=== PATIENT | male | born 1980 | race Caucasian/White ===

== ENCOUNTER 2021-04-24 17:40 | Emergency (ER) | payer SELFPAY | END 2021-04-25 00:28 | disposition home or self-care (01) | LOC: ERS 17:40 | DX: M25.551 Pain in right hip (principal); R51.9 Headache, unspecified; I69.351 Hemiplegia and hemiparesis following cerebral infarction affecting right dominant side; W19.XXXA Unspecified fall, initial encounter | CPT/HCPCS: 70450 ==

== ENCOUNTER 2021-12-30 05:54 | Emergency (ER) | payer MEDICAID | END 2021-12-30 09:06 | disposition home or self-care (01) | LOC: ERS 05:54 | DX: S02.841A Fracture of lateral orbital wall, right side, initial encounter for closed fracture (principal); S02.31XA Fracture of orbital floor, right side, initial encounter for closed fracture; S02.40CA Maxillary fracture, right side, initial encounter for closed fracture; S02.40EA Zygomatic fracture, right side, initial encounter for closed fracture; Z86.73 Personal history of transient ischemic attack (TIA), and cerebral infarction without residual deficits; Z79.899 Other long term (current) drug therapy; Z79.82 Long term (current) use of aspirin; Z79.01 Long term (current) use of anticoagulants; W20.8XXA Other cause of strike by thrown, projected or falling object, initial encounter | CPT/HCPCS: 70450; 70486 ==

== ENCOUNTER 2022-06-09 22:05 | Emergency (ER) | payer MEDICAID, OTHER ==
[2022-06-09] MEDS ORDERED: Ondansetron PF 4 MG/2 ML Vial ONE ×2 (22:45→23:53)
[2022-06-09 23:20] LABS: #Eosinphils 0.1 thou/uL (0.0-0.7); #Lymphocytes 0.9 thou/uL (1.20-3.40); #Monocytes 0.3 thou/uL (0.11-0.59); #Neutrophils 3.2 thou/uL (1.40-6.50); %Basophils 0.8 % (0.0-1.0); %Eosinophils 1.3 % (0.0-10.0); %Lymphocytes 19.5 % (21.0-51.0); %Monocytes 7.6 % (0.0-10.0); %Neutrophils 70.8 % (42.0-75.0); Hemoglobin 12.5 g/dL (14.0-18.0); Mean Corpuscular HGB CONC 34.2 g/dL (32.0-36.0); Mean Corpuscular Hemoglobin 31.8 pg (27.0-31.0); Mean Corpuscular Volume 93.1 fl (78.0-98.0); Mean Platelet Volume 7.1 fL (7.4-10.4); Platelet Count 206 10x3/uL (130-400); Red Blood Cell (RBC) Count 3.94 mill/uL (4.70-6.10); White Blood Cell (WBC) Count 4.6 10x3/uL (4.8-10.8)
[2022-06-10 00:04] LABS: SARS-CoV-2 NAA Rapid Test Not Detected (NotDetected)
[2022-06-10 00:58] LABS: ALT (SGPT) 13 U/L (8-55); AST (SGOT) 9 U/L (5-34); Albumin 4.8 g/dL (3.5-5.0); Alkaline Phosphatase 84 U/L (40-110); Anion Gap 15 mmol/L (10-20); BUN (Urea Nitrogen) 14 mg/dL (8.9-20.6); Bilirubin, Total 0.7 mg/dL (0.2-1.2); Calc. Creatinine Clearance 0 mL/min (70-130); Calcium 9.6 mg/dL (7.8-10.44); Carbon Dioxide 28 mmol/L (22-29); Chloride 105 mmol/L (98-107); Estimated GFR 88; Globulin 2.6 g/dL (2.4-3.5); Glucose 109 mg/dL (70-105); Potassium 3.6 mmol/L (3.5-5.1); Protein, Total 7.4 g/dL (6.0-8.3); Sodium 144 mmol/L (136-145)
[2022-06-10] MEDS ORDERED: Iopamidol-370 76% 500 ML 1 ML ONE (08:49)
== END 2022-06-10 02:58 ==
LOC: ERS 22:05
DX: R11.2 Nausea with vomiting, unspecified (principal); I10 Essential (primary) hypertension; K21.9 Gastro-esophageal reflux disease without esophagitis
CPT/HCPCS: 74177; 80053; 83690; 85025; 96374; 96376; J2405; Q9967

== ENCOUNTER 2022-08-04 12:13 | Inpatient (IN) | payer OTHER ==
[2022-08-04 12:57] LABS: Bacteria/HPF None Seen HPF (None Seen); Bilirubin 1+ (Negative); Blood, Urine Negative (Negative); Clarity Clear (Clear); Glucose, Urine (Dipstick) Normal (Negative); Ketone, Urine 10 mg/dL (Negative); Leukocyte Negative Leu/uL (Negative); Nitrite Negative (Negative); Protein, Urine (Dipstick) 100 mg/dL (Neg-Trace); RBC/HPF 0-3 HPF (0-3); Specific Gravity, Urine 1.041 (1.002-1.036); Squamous Epithelial None Seen HPF (0-3); Urobilinogen Greater than 12 mg/dL (Less than 2); WBC/HPF 0-3 HPF (0-3); pH, Urine 6.5 (5.0-9.0)
[2022-08-04 13:26] LABS: #Lymphocytes 1.3 thou/uL (1.20-3.40); #Monocytes 0.5 thou/uL (0.11-0.59); %Eosinophils 0.7 % (0.0-10.0); %Lymphocytes 22.4 % (21.0-51.0); %Neutrophils 68.8 % (42.0-75.0); Hemoglobin 14.1 g/dL (14.0-18.0); Mean Corpuscular Hemoglobin 30.7 pg (27.0-31.0); Mean Corpuscular Volume 90.3 fl (78.0-98.0); Mean Platelet Volume 7.6 fL (7.4-10.4); Platelet Count 215 10x3/uL (130-400); Red Blood Cell (RBC) Count 4.61 mill/uL (4.70-6.10); White Blood Cell (WBC) Count 5.8 10x3/uL (4.8-10.8)
[2022-08-04 13:48] LABS: ALT (SGPT) 14 U/L (8-55); AST (SGOT) 14 U/L (5-34); Albumin 4.8 g/dL (3.5-5.0); Alkaline Phosphatase 89 U/L (40-110); Anion Gap 18 mmol/L (10-20); BUN (Urea Nitrogen) 19 mg/dL (8.9-20.6); Calc. Creatinine Clearance 0 mL/min (70-130); Carbon Dioxide 24 mmol/L (22-29); Chloride 106 mmol/L (98-107); Estimated GFR 88; Glucose 100 mg/dL (70-105); Lipase 28 U/L (8-78); Potassium 3.2 mmol/L (3.5-5.1); Protein, Total 7.8 g/dL (6.0-8.3); Sodium 145 mmol/L (136-145)
[2022-08-04] MEDS ORDERED: LORazepam 2 MG/ML SYR.(CARPUJECT) ONE (13:49)
[2022-08-04] MEDS ORDERED: Piperacillin/Tazobactam 3.375 GM VIAL ONE (15:14)
[2022-08-04 15:41] LABS: Phosphorus 3.5 mg/dL (2.3-4.7)
[2022-08-04 16:29] VITALS: BMI 27.8
[2022-08-04] MEDS ORDERED: Acetaminophen 650 MG Suppository PR PRN (16:52)
[2022-08-04] MEDS ORDERED: Ondansetron ODT 4 MG TAB PO PRN (16:52)
[2022-08-04] MEDS ORDERED: Ondansetron PF 4 MG/2 ML Vial IVP PRN (16:52)
[2022-08-04] MEDS: D5 1/2 NS w/20 mEq KCL 1,000 ML IV SCH ×2 (17:30→23:20)
[2022-08-04] MEDS: levETIRAcetam 500 MG/5 ML VIAL SLOW IVP SCH (17:34)
[2022-08-04] MEDS: Famotidine/PF 20 mg/2ml Vial SLOW IVP SCH (20:24)
[2022-08-04] MEDS ORDERED: levETIRAcetam 500 MG/5 ML VIAL SLOW IVP SCH (21:00)
[2022-08-04] MEDS: Lacosamide 200 MG in Sodium Chloride 0.9% 50 ML IVPB SCH (22:32)
[2022-08-05] MEDS: levETIRAcetam 500 MG/5 ML VIAL SLOW IVP SCH ×2 (05:37→17:57)
[2022-08-05 07:24] LABS: #Eosinphils 0.1 thou/uL (0.0-0.7); #Lymphocytes 0.9 thou/uL (1.20-3.40); #Monocytes 0.3 thou/uL (0.11-0.59); #Neutrophils 4.4 thou/uL (1.40-6.50); %Basophils 0.4 % (0.0-1.0); %Eosinophils 2.3 % (0.0-10.0); %Monocytes 5.4 % (0.0-10.0); Hemoglobin 11.7 g/dL (14.0-18.0); Mean Corpuscular HGB CONC 33.3 g/dL (32.0-36.0); Mean Corpuscular Hemoglobin 30.7 pg (27.0-31.0); Mean Corpuscular Volume 92.2 fl (78.0-98.0); Mean Platelet Volume 7.7 fL (7.4-10.4); Platelet Count 149 10x3/uL (130-400); RBC Distribution Width 11.9 % (11.5-14.5); Red Blood Cell (RBC) Count 3.81 mill/uL (4.70-6.10); White Blood Cell (WBC) Count 5.7 10x3/uL (4.8-10.8)
[2022-08-05] MEDS: D5 1/2 NS w/20 mEq KCL 1,000 ML IV SCH (07:42)
[2022-08-05 07:52] LABS: ALT (SGPT) 7 U/L (8-55); AST (SGOT) 9 U/L (5-34); Albumin 3.7 g/dL (3.5-5.0); Alkaline Phosphatase 69 U/L (40-110); Anion Gap 11 mmol/L (10-20); BUN (Urea Nitrogen) 14 mg/dL (8.9-20.6); Bilirubin, Total 0.6 mg/dL (0.2-1.2); Calc. Creatinine Clearance 153 mL/min (70-130); Calcium 8.2 mg/dL (7.8-10.44); Carbon Dioxide 21 mmol/L (22-29); Chloride 114 mmol/L (98-107); Estimated GFR 112; Globulin 2.1 g/dL (2.4-3.5); Glucose 105 mg/dL (70-105); Magnesium 1.8 mg/dL (1.6-2.6); Potassium 2.9 mmol/L (3.5-5.1); Protein, Total 5.8 g/dL (6.0-8.3); Sodium 143 mmol/L (136-145)
[2022-08-05] MEDS ORDERED: Magnesium 2 GM/50 ML(in water) 2 GM in Premix Bag 1 BAG IVPB SCH (08:30)
[2022-08-05] MEDS: D5 1/2 NS w/40 mEq KCL 1,000 ML IV SCH ×3 (09:16→23:46)
[2022-08-05] MEDS: Lacosamide 200 MG in Sodium Chloride 0.9% 50 ML IVPB SCH ×2 (09:19→21:11)
[2022-08-05] MEDS: Famotidine/PF 20 mg/2ml Vial SLOW IVP SCH (09:19)
[2022-08-05] MEDS ORDERED: Pantoprazole 40 MG VIAL IVP SCH (13:15)
[2022-08-05 17:19] LABS: Anion Gap 12 mmol/L (10-20); BUN (Urea Nitrogen) 12 mg/dL (8.9-20.6); Calc. Creatinine Clearance 159 mL/min (70-130); Carbon Dioxide 18 mmol/L (22-29); Chloride 115 mmol/L (98-107); Estimated GFR 113; Glucose 106 mg/dL (70-105); Potassium 3.3 mmol/L (3.5-5.1); Sodium 142 mmol/L (136-145)
[2022-08-05] MEDS: Pantoprazole 40 MG VIAL IVP SCH (20:07)
[2022-08-06] MEDS: levETIRAcetam 500 MG/5 ML VIAL SLOW IVP SCH ×2 (05:09→17:39)
[2022-08-06] MEDS: Fosphenytoin Sodium 150 MG in Sodium Chloride 0.9% 50 ML IVPB SCH ×2 (05:54→17:43)
[2022-08-06 06:20] LABS: #Eosinphils 0.1 thou/uL (0.0-0.7); #Monocytes 0.3 thou/uL (0.11-0.59); %Basophils 0.1 % (0.0-1.0); %Eosinophils 3.1 % (0.0-10.0); %Lymphocytes 22.1 % (21.0-51.0); %Monocytes 6.8 % (0.0-10.0); %Neutrophils 67.9 % (42.0-75.0); Mean Corpuscular HGB CONC 33.6 g/dL (32.0-36.0); Mean Corpuscular Hemoglobin 30.8 pg (27.0-31.0); Mean Corpuscular Volume 91.8 fl (78.0-98.0); Mean Platelet Volume 7.8 fL (7.4-10.4); Platelet Count 129 10x3/uL (130-400); RBC Distribution Width 11.7 % (11.5-14.5); Red Blood Cell (RBC) Count 3.56 mill/uL (4.70-6.10); White Blood Cell (WBC) Count 4.3 10x3/uL (4.8-10.8)
[2022-08-06 06:54] LABS: Anion Gap 11 mmol/L (10-20); BUN (Urea Nitrogen) 8 mg/dL (8.9-20.6); Calc. Creatinine Clearance 171 mL/min (70-130); Calcium 8.2 mg/dL (7.8-10.44); Carbon Dioxide 19 mmol/L (22-29); Chloride 113 mmol/L (98-107); Estimated GFR 115; Glucose 110 mg/dL (70-105); Magnesium 1.9 mg/dL (1.6-2.6); Phosphorus 2.1 mg/dL (2.3-4.7); Potassium 3.5 mmol/L (3.5-5.1); Sodium 139 mmol/L (136-145)
[2022-08-06] MEDS: D5 1/2 NS w/40 mEq KCL 1,000 ML IV SCH ×3 (08:17→19:55)
[2022-08-06] MEDS: Pantoprazole 40 MG VIAL IVP SCH ×2 (08:18→19:59)
[2022-08-06] MEDS: Lacosamide 200 MG in Sodium Chloride 0.9% 50 ML IVPB SCH ×2 (09:23→20:46)
[2022-08-06] MEDS ORDERED: Potassium Phosphate 30 MMOL in Sodium Chloride 0.9% 500 ML IVPB SCH (10:00)
[2022-08-07] MEDS: Fosphenytoin Sodium 150 MG in Sodium Chloride 0.9% 50 ML IVPB SCH ×2 (05:09→16:10)
[2022-08-07] MEDS: levETIRAcetam 500 MG/5 ML VIAL SLOW IVP SCH ×2 (05:09→17:15)
[2022-08-07 07:08] LABS: #Eosinphils 0.2 thou/uL (0.0-0.7); #Lymphocytes 1.2 thou/uL (1.20-3.40); #Monocytes 0.4 thou/uL (0.11-0.59); #Neutrophils 3.1 thou/uL (1.40-6.50); %Basophils 0.5 % (0.0-1.0); %Eosinophils 3.5 % (0.0-10.0); %Lymphocytes 25.1 % (21.0-51.0); %Monocytes 7.1 % (0.0-10.0); %Neutrophils 63.9 % (42.0-75.0); Hemoglobin 12.9 g/dL (14.0-18.0); Mean Corpuscular HGB CONC 33.7 g/dL (32.0-36.0); Mean Corpuscular Hemoglobin 30.6 pg (27.0-31.0); Mean Corpuscular Volume 90.8 fl (78.0-98.0); Platelet Count 148 10x3/uL (130-400); RBC Distribution Width 11.9 % (11.5-14.5); Red Blood Cell (RBC) Count 4.21 mill/uL (4.70-6.10); White Blood Cell (WBC) Count 4.9 10x3/uL (4.8-10.8)
[2022-08-07 07:20] LABS: Anion Gap 16 mmol/L (10-20); BUN (Urea Nitrogen) 4 mg/dL (8.9-20.6); Calc. Creatinine Clearance 160 mL/min (70-130); Calcium 9.2 mg/dL (7.8-10.44); Carbon Dioxide 17 mmol/L (22-29); Chloride 110 mmol/L (98-107); Estimated GFR 113; Glucose 90 mg/dL (70-105); Magnesium 1.8 mg/dL (1.6-2.6); Phosphorus 2.7 mg/dL (2.3-4.7); Potassium 3.8 mmol/L (3.5-5.1); Sodium 139 mmol/L (136-145)
[2022-08-07] MEDS: Pantoprazole 40 MG VIAL IVP SCH (08:04)
[2022-08-07] MEDS ORDERED: Electrolyte Replacement Protocol 1 EACH FS SCH (08:15)
[2022-08-07] MEDS ORDERED: Magnesium 2 GM/50 ML(in water) 2 GM in Premix Bag 1 BAG IVPB SCH (09:00)
[2022-08-07] MEDS: D5 1/2 NS w/40 mEq KCL 1,000 ML IV SCH ×3 (10:06→21:35)
[2022-08-07] MEDS: Lacosamide 200 MG in Sodium Chloride 0.9% 50 ML IVPB SCH (10:33)
[2022-08-07] MEDS ORDERED: FLU VACC QS2022-23(6MOS UP)/PF 60 MCG/0.5 ML SYRINGE IM ONE (16:45)
[2022-08-07] MEDS ORDERED: Non-Formulary Item 1 EACH (Topiramate [Topiramate] 50 MG Tablet) PO SCH (21:00)
[2022-08-07] MEDS: Lacosamide 50 mg Tablet PO SCH (21:34)
[2022-08-07] MEDS: levETIRAcetam 500 mg/5 ml Oral Solution PO SCH (21:35)
[2022-08-07] MEDS: Polyethylene Glycol 3350 17 GM Packet PO SCH (21:35)
[2022-08-07] MEDS: Amantadine HCl 100 mg Capsule PO SCH (21:39)
[2022-08-08] MEDS: Fosphenytoin Sodium 150 MG in Sodium Chloride 0.9% 50 ML IVPB SCH (05:34)
[2022-08-08] MEDS: levETIRAcetam 500 mg/5 ml Oral Solution PO SCH ×2 (08:02→21:39)
[2022-08-08] MEDS: Aspirin Chewable 81 MG TAB PO SCH (08:02)
[2022-08-08] MEDS: Amantadine HCl 100 mg Capsule PO SCH ×2 (08:02→21:38)
[2022-08-08] MEDS: Lacosamide 50 mg Tablet PO SCH ×2 (08:02→21:38)
[2022-08-08] MEDS: Folic Acid 1 MG TAB PO SCH (08:03)
[2022-08-08] MEDS: Polyethylene Glycol 3350 17 GM Packet PO SCH ×2 (08:03→21:39)
[2022-08-08] MEDS: Bupropion 150 MG SR TAB PO SCH (08:03)
[2022-08-08] MEDS: D5 1/2 NS w/40 mEq KCL 1,000 ML IV SCH ×3 (13:41→18:27)
[2022-08-08] MEDS: Apixaban 5 MG TAB PO SCH (21:38)
[2022-08-08] MEDS: Topiramate 100 MG TAB PO SCH (21:39)
[2022-08-09 06:53] LABS: #Eosinphils 0.1 thou/uL (0.0-0.7); #Lymphocytes 0.8 thou/uL (1.20-3.40); #Monocytes 0.3 thou/uL (0.11-0.59); #Neutrophils 2.1 thou/uL (1.40-6.50); %Basophils 0.3 % (0.0-1.0); %Lymphocytes 24.7 % (21.0-51.0); %Monocytes 9.4 % (0.0-10.0); %Neutrophils 61.6 % (42.0-75.0); Hemoglobin 12.4 g/dL (14.0-18.0); Mean Corpuscular HGB CONC 33.6 g/dL (32.0-36.0); Mean Corpuscular Hemoglobin 30.4 pg (27.0-31.0); Mean Corpuscular Volume 90.5 fl (78.0-98.0); Mean Platelet Volume 7.7 fL (7.4-10.4); Platelet Count 162 10x3/uL (130-400); RBC Distribution Width 11.9 % (11.5-14.5); Red Blood Cell (RBC) Count 4.08 mill/uL (4.70-6.10); White Blood Cell (WBC) Count 3.4 10x3/uL (4.8-10.8)
[2022-08-09 07:11] LABS: Anion Gap 11 mmol/L (10-20); BUN (Urea Nitrogen) 5 mg/dL (8.9-20.6); Calc. Creatinine Clearance 169 mL/min (70-130); Calcium 8.6 mg/dL (7.8-10.44); Carbon Dioxide 22 mmol/L (22-29); Chloride 108 mmol/L (98-107); Estimated GFR 115; Glucose 99 mg/dL (70-105); Potassium 3.8 mmol/L (3.5-5.1); Sodium 137 mmol/L (136-145)
[2022-08-09] MEDS: levETIRAcetam 500 mg/5 ml Oral Solution PO SCH ×2 (08:21→21:12)
[2022-08-09] MEDS: Polyethylene Glycol 3350 17 GM Packet PO SCH ×2 (08:21→21:14)
[2022-08-09] MEDS: Aspirin Chewable 81 MG TAB PO SCH (08:22)
[2022-08-09] MEDS: Apixaban 5 MG TAB PO SCH ×2 (08:22→21:14)
[2022-08-09] MEDS: Lacosamide 50 mg Tablet PO SCH ×2 (08:22→21:14)
[2022-08-09] MEDS: Amantadine HCl 100 mg Capsule PO SCH ×2 (08:22→21:14)
[2022-08-09] MEDS: Topiramate 100 MG TAB PO SCH ×2 (08:22→21:14)
[2022-08-09] MEDS: Folic Acid 1 MG TAB PO SCH (08:22)
[2022-08-09] MEDS: Bupropion 150 MG SR TAB PO SCH (08:23)
[2022-08-09] MEDS ORDERED: Vancomycin 1 GM in Premix Bag 1 BAG IVPB SCH (09:45)
[2022-08-09] MEDS ORDERED: Cefepime 1 GM in Sodium Chloride 0.9% 100 ML IVPB SCH (10:00)
[2022-08-09] MEDS: D5 1/2 NS w/40 mEq KCL 1,000 ML IV SCH (12:03)
[2022-08-09] MEDS ORDERED: Vancomycin 1.5 GRAM/300 ML BAG 1.5 GM in Premix Bag 1 BAG IVPB SCH (14:00)
[2022-08-10] MEDS: D5 1/2 NS w/40 mEq KCL 1,000 ML IV SCH (05:22)
[2022-08-10 06:33] LABS: #Eosinphils 0.2 thou/uL (0.0-0.7); #Lymphocytes 0.9 thou/uL (1.20-3.40); #Monocytes 0.4 thou/uL (0.11-0.59); %Basophils 0.4 % (0.0-1.0); %Eosinophils 5.7 % (0.0-10.0); %Lymphocytes 26.2 % (21.0-51.0); %Monocytes 10.4 % (0.0-10.0); %Neutrophils 57.3 % (42.0-75.0); Hemoglobin 13.6 g/dL (14.0-18.0); Mean Corpuscular HGB CONC 33.6 g/dL (32.0-36.0); Mean Corpuscular Hemoglobin 30.6 pg (27.0-31.0); Mean Corpuscular Volume 91.1 fl (78.0-98.0); Mean Platelet Volume 7.7 fL (7.4-10.4); Platelet Count 181 10x3/uL (130-400); RBC Distribution Width 12.1 % (11.5-14.5); Red Blood Cell (RBC) Count 4.43 mill/uL (4.70-6.10); White Blood Cell (WBC) Count 3.4 10x3/uL (4.8-10.8)
[2022-08-10 06:52] LABS: Anion Gap 13 mmol/L (10-20); BUN (Urea Nitrogen) 5 mg/dL (8.9-20.6); Calc. Creatinine Clearance 171 mL/min (70-130); Calcium 9.3 mg/dL (7.8-10.44); Carbon Dioxide 22 mmol/L (22-29); Chloride 106 mmol/L (98-107); Estimated GFR 115; Glucose 106 mg/dL (70-105); Sodium 137 mmol/L (136-145)
[2022-08-10] MEDS: Polyethylene Glycol 3350 17 GM Packet PO SCH (09:02)
[2022-08-10] MEDS: Topiramate 100 MG TAB PO SCH (09:02)
[2022-08-10] MEDS: Folic Acid 1 MG TAB PO SCH (09:03)
[2022-08-10] MEDS: levETIRAcetam 500 mg/5 ml Oral Solution PO SCH (09:03)
[2022-08-10] MEDS: Lacosamide 50 mg Tablet PO SCH (09:03)
[2022-08-10] MEDS: Aspirin Chewable 81 MG TAB PO SCH (09:03)
[2022-08-10] MEDS: Apixaban 5 MG TAB PO SCH (09:03)
[2022-08-10] MEDS: Bupropion 150 MG SR TAB PO SCH (09:03)
[2022-08-10] MEDS: Amantadine HCl 100 mg Capsule PO SCH (09:03)
[2022-08-10 11:49] VITALS: TEMP 98.1
[2022-08-10 17:01] VITALS: BP 119/83
== END 2022-08-10 18:27 | DRG 388 ==
LOC: ERS 12:13 → T4-A 14:57
PROVIDERS: ADMIT Internal Medicine; ATTEND Internal Medicine
PROC: 0D9670Z Drainage of Stomach with Drainage Device, Via Natural or Artificial Opening (ICD-10-PCS; principal; 2022-08-04)
DX: K56.7 Ileus, unspecified (principal); G93.41 Metabolic encephalopathy; I69.351 Hemiplegia and hemiparesis following cerebral infarction affecting right dominant side; Z20.822 Contact with and (suspected) exposure to COVID-19; K56.609 Unspecified intestinal obstruction, unspecified as to partial versus complete obstruction; G40.909 Epilepsy, unspecified, not intractable, without status epilepticus; I10 Essential (primary) hypertension; E78.5 Hyperlipidemia, unspecified; E87.6 Hypokalemia; E83.39 Other disorders of phosphorus metabolism; R13.10 Dysphagia, unspecified; F32.A Depression, unspecified; F41.1 Generalized anxiety disorder; Z28.82 Immunization not carried out because of caregiver refusal; I69.320 Aphasia following cerebral infarction; Z86.718 Personal history of other venous thrombosis and embolism; Z79.01 Long term (current) use of anticoagulants; Z79.899 Other long term (current) drug therapy; Z79.82 Long term (current) use of aspirin; Z98.890 Other specified postprocedural states
CPT/HCPCS: 36415; 36416; 51701; 71045; 74018; 74177; 74230; 80048; 80053; 81003; 81015; 83605; 83690; 83735; 84100; 84443; 84484; 85025; 87040; 87076; 87086; 93005; 95712; 95816; 95819; 95957; 96361; 96365; 96375; C9113; C9254; J0692; J1650; J1953; J2060; J2405; J2543; J3370; J3475; J3480; J3490; J7030; Q2009; S0028

== ENCOUNTER 2022-08-14 14:09 | Emergency (ER) | payer OTHER ==
[2022-08-14 14:44] LABS: #Eosinphils 0.1 thou/uL (0.0-0.7); #Lymphocytes 0.8 thou/uL (1.20-3.40); #Monocytes 0.4 thou/uL (0.11-0.59); %Basophils 0.3 % (0.0-1.0); %Eosinophils 2.8 % (0.0-10.0); %Lymphocytes 24.8 % (21.0-51.0); %Monocytes 10.8 % (0.0-10.0); %Neutrophils 61.2 % (42.0-75.0); Hemoglobin 13.4 g/dL (14.0-18.0); Mean Corpuscular Hemoglobin 30.3 pg (27.0-31.0); Mean Platelet Volume 7.4 fL (7.4-10.4); Platelet Count 210 10x3/uL (130-400); RBC Distribution Width 12.5 % (11.5-14.5); Red Blood Cell (RBC) Count 4.43 mill/uL (4.70-6.10); White Blood Cell (WBC) Count 3.3 10x3/uL (4.8-10.8)
[2022-08-14 15:06] LABS: Bacteria/HPF None Seen HPF (None Seen); Bilirubin Negative (Negative); Blood, Urine Negative (Negative); Clarity Clear (Clear); Glucose, Urine (Dipstick) Normal (Negative); Ketone, Urine Negative (Negative); Leukocyte Negative Leu/uL (Negative); Nitrite Negative (Negative); Protein, Urine (Dipstick) 30 mg/dL (Neg-Trace); RBC/HPF 0-3 HPF (0-3); Specific Gravity, Urine 1.035 (1.002-1.036); Squamous Epithelial None Seen HPF (0-3); WBC/HPF 0-3 HPF (0-3); pH, Urine 5.5 (5.0-9.0)
[2022-08-14 15:23] LABS: ALT (SGPT) 14 U/L (8-55); AST (SGOT) 9 U/L (5-34); Albumin 4.3 g/dL (3.5-5.0); Alkaline Phosphatase 83 U/L (40-110); Anion Gap 12 mmol/L (10-20); BUN (Urea Nitrogen) 13 mg/dL (8.9-20.6); Bilirubin, Total 0.6 mg/dL (0.2-1.2); CK (CPK) 13 U/L (30-200); Calc. Creatinine Clearance 0 mL/min (70-130); Calcium 9.4 mg/dL (7.8-10.44); Carbon Dioxide 22 mmol/L (22-29); Chloride 110 mmol/L (98-107); Estimated GFR 103; Globulin 2.7 g/dL (2.4-3.5); Glucose 94 mg/dL (70-105); Lipase 20 U/L (8-78); Potassium 3.9 mmol/L (3.5-5.1); Sodium 140 mmol/L (136-145)
[2022-08-14 15:44] LABS: SARS-CoV-2 NAA Rapid Test Not Detected (NotDetected)
== END 2022-08-14 19:52 ==
LOC: ERS 14:09
DX: R53.1 Weakness (principal); I10 Essential (primary) hypertension; K21.9 Gastro-esophageal reflux disease without esophagitis; Z20.822 Contact with and (suspected) exposure to COVID-19; Z79.82 Long term (current) use of aspirin; Z79.899 Other long term (current) drug therapy; Z79.01 Long term (current) use of anticoagulants
CPT/HCPCS: 36415; 36416; 51701; 70450; 71045; 80053; 80177; 81003; 81015; 82550; 83605; 83690; 84484; 85025; 87040; 93005

== ENCOUNTER 2022-10-16 17:11 | Inpatient (IN) | payer OTHER ==
[~2022-10-16 17:11] MED LIST: Iopamidol 370 76% 100 ML VIAL ONE
[2022-10-16] MEDS ORDERED: Acetaminophen 650 MG Suppository ONE (18:02)
[2022-10-16] MEDS ORDERED: Ketorolac Tromethamine 30 MG/ML VIAL ONE (18:02)
[2022-10-16 18:13] LABS: #Lymphocytes 1.5 thou/uL (1.20-3.40); #Monocytes 0.7 thou/uL (0.11-0.59); #Neutrophils 5.8 thou/uL (1.40-6.50); %Basophils 0.5 % (0.0-1.0); %Eosinophils 0.5 % (0.0-10.0); %Lymphocytes 18.9 % (21.0-51.0); %Monocytes 8.3 % (0.0-10.0); %Neutrophils 71.8 % (42.0-75.0); Hemoglobin 13.3 g/dL (14.0-18.0); Mean Corpuscular HGB CONC 33.6 g/dL (32.0-36.0); Mean Corpuscular Volume 92.2 fl (78.0-98.0); Mean Platelet Volume 7.9 fL (7.4-10.4); Platelet Count 180 10x3/uL (130-400); Red Blood Cell (RBC) Count 4.29 mill/uL (4.70-6.10)
[2022-10-16] MEDS ORDERED: Sodium Chloride 0.9% 100 ML ONE (18:15)
[2022-10-16] MEDS ORDERED: Piperacillin/Tazobactam 4.5 GM VIAL ONE (18:15)
[2022-10-16 18:27] LABS: INR-International Normal Ratio 1.6; PTT 35.5 sec (22.9-36.1); Prothrombin Time 19.7 sec (12.0-14.7)
[2022-10-16 18:34] LABS: ALT (SGPT) 34 U/L (8-55); AST (SGOT) 24 U/L (5-34); Albumin 4.6 g/dL (3.5-5.0); Alkaline Phosphatase 136 U/L (40-110); Anion Gap 17 mmol/L (10-20); BUN (Urea Nitrogen) 33 mg/dL (8.9-20.6); Bilirubin, Total 1.1 mg/dL (0.2-1.2); Calc. Creatinine Clearance 0 mL/min (70-130); Calcium 10.6 mg/dL (7.8-10.44); Carbon Dioxide 20 mmol/L (22-29); Chloride 121 mmol/L (98-107); Estimated GFR 64; Globulin 3.2 g/dL (2.4-3.5); Glucose 100 mg/dL (70-105); Potassium 3.7 mmol/L (3.5-5.1); Protein, Total 7.8 g/dL (6.0-8.3)
[2022-10-16 19:05] LABS: Sodium 154 mmol/L (136-145)
[2022-10-16 19:24] LABS: Bacteria/HPF None Seen HPF (None Seen); Bilirubin Negative (Negative); Blood, Urine Negative (Negative); Clarity Clear (Clear); Glucose, Urine (Dipstick) Normal (Negative); Ketone, Urine Trace mg/dL (Negative); Leukocyte Negative Leu/uL (Negative); Nitrite Negative (Negative); Protein, Urine (Dipstick) 70 mg/dL (Neg-Trace); RBC/HPF 0-3 HPF (0-3); Specific Gravity, Urine 1.036 (1.002-1.036); Squamous Epithelial None Seen HPF (0-3); WBC/HPF None Seen HPF (0-3); pH, Urine 5.5 (5.0-9.0)
[2022-10-16 19:35] LABS: SARS-CoV-2 NAA Rapid Test Not Detected (NotDetected)
[2022-10-16] MEDS ORDERED: Vancomycin 1 GM/200 ML (FROZEN) BAG ONE (20:32)
[2022-10-16] MEDS ORDERED: Metoclopramide HCl 10 MG/2 ML VIAL IVP PRN (21:44)
[2022-10-16] MEDS ORDERED: Bisacodyl 10 MG SUPP PR PRN (21:44)
[2022-10-16] MEDS ORDERED: Ondansetron PF 4 MG/2 ML Vial IVP PRN (21:47)
[2022-10-16] MEDS ORDERED: Acetaminophen 325 MG TAB PO PRN (21:47)
[2022-10-16] MEDS ORDERED: Ondansetron ODT 4 MG TAB PO PRN (21:47)
[2022-10-16] MEDS ORDERED: Acetaminophen 650 MG Suppository PR PRN (21:47)
[2022-10-16] MEDS ORDERED: Lactated Ringer's 1,000 ML IV SCH (22:00)
[2022-10-16] MEDS ORDERED: Lorazepam 2 MG/ML VIAL SLOW IVP PRN (23:45)
[2022-10-17] MEDS: Cefepime 2 GM in Sodium Chloride 0.9% 100 ML IVPB SCH ×3 (00:44→23:10)
[2022-10-17] MEDS ORDERED: Lorazepam 2 MG/ML VIAL SLOW IVP SCH ×2 (01:00→01:15)
[2022-10-17 01:09] LABS: #Eosinphils 0.1 thou/uL (0.0-0.7); #Lymphocytes 1.3 thou/uL (1.20-3.40); #Monocytes 0.4 thou/uL (0.11-0.59); #Neutrophils 3.8 thou/uL (1.40-6.50); %Basophils 0.2 % (0.0-1.0); %Eosinophils 1.4 % (0.0-10.0); %Lymphocytes 23.4 % (21.0-51.0); %Monocytes 7.6 % (0.0-10.0); %Neutrophils 67.4 % (42.0-75.0); Hemoglobin 11.4 g/dL (14.0-18.0); Mean Corpuscular HGB CONC 34.4 g/dL (32.0-36.0); Mean Corpuscular Hemoglobin 31.7 pg (27.0-31.0); Mean Corpuscular Volume 92.3 fl (78.0-98.0); Mean Platelet Volume 7.8 fL (7.4-10.4); Platelet Count 127 10x3/uL (130-400); RBC Distribution Width 12.7 % (11.5-14.5); White Blood Cell (WBC) Count 5.6 10x3/uL (4.8-10.8)
[2022-10-17 01:42] LABS: Lactic Acid 1.1 mmol/L (0.5-2.2)
[2022-10-17 01:47] LABS: ALT (SGPT) 31 U/L (8-55); AST (SGOT) 20 U/L (5-34); Albumin 3.8 g/dL (3.5-5.0); Alkaline Phosphatase 109 U/L (40-110); Anion Gap 14 mmol/L (10-20); BUN (Urea Nitrogen) 34 mg/dL (8.9-20.6); Bilirubin, Total 1.1 mg/dL (0.2-1.2); Calc. Creatinine Clearance 73 mL/min (70-130); Calcium 9.4 mg/dL (7.8-10.44); Carbon Dioxide 20 mmol/L (22-29); Chloride 123 mmol/L (98-107); Estimated GFR 57; Globulin 2.7 g/dL (2.4-3.5); Glucose 97 mg/dL (70-105); Magnesium 2.2 mg/dL (1.6-2.6); Potassium 3.9 mmol/L (3.5-5.1); Protein, Total 6.5 g/dL (6.0-8.3)
[2022-10-17 01:50] LABS: Sodium 153 mmol/L (136-145)
[2022-10-17] MEDS: Lorazepam 2 MG/ML VIAL SLOW IVP PRN ×5 (01:57→13:20)
[2022-10-17] MEDS ORDERED: levETIRAcetam in NS 1,000 MG in Premix Bag 1 BAG IVPB SCH ×2 (02:00→09:00)
[2022-10-17] MEDS ORDERED: levETIRAcetam 500 MG/5 ML VIAL SLOW IVP SCH ×2 (02:15→03:00)
[2022-10-17] MEDS ORDERED: Ventilator Sedation Protocol 1 EACH FS ONE (02:50)
[2022-10-17] MEDS ORDERED: Fentanyl CADD 100 ML IV SCH (03:00)
[2022-10-17] MEDS ORDERED: DISCONTINUE PREVIOUS NARCOTIC PAIN MEDICATIONS AND BENZODIAZEPINES FS SCH (03:00)
[2022-10-17] MEDS ORDERED: Propofol BOLUS 1,000 MG/100 ML VIAL IV PRN (03:00)
[2022-10-17] MEDS ORDERED: Morphine 2 MG/ML VIAL SLOW IVP PRN (03:00)
[2022-10-17] MEDS ORDERED: Fentanyl BOLUS 250 ML IVPB PRN (03:00)
[2022-10-17] MEDS ORDERED: NOREPINEPHRINE 8 MG/250 ML-D5W 250 ML ONE (03:07)
[2022-10-17] MEDS ORDERED: Lacosamide 200 MG in Sodium Chloride 0.9% 50 ML IVPB SCH (03:15)
[2022-10-17] MEDS: NOREPINEPHRINE 8 MG/250 ML-D5W 250 ML IVPB SCH ×2 (03:25→19:32)
[2022-10-17] MEDS ORDERED: Rocuronium Bromide 10 MG/ML (10ML VIAL) ONE (03:25)
[2022-10-17] MEDS ORDERED: Rocuronium Bromide 50 MG/5 ML VIAL IVP SCH (04:00)
[2022-10-17] MEDS: Propofol 1,000 MG/100 ML VIAL IV PRN ×4 (04:05→22:34)
[2022-10-17 04:07] LABS: Actual Bicarbonate (HCO3a) 19.8 mEq/L (22-28); Base Excess (BEa) -4.9 mEq/L (-2.0 to +3.0); CO2 Tension 35.2 mmHg (35.0-45.0); Calcium, Ionized (arterial) 1.27 mmol/L (1.12-1.30); Carboxyhemoglobin (COHb) 0.4 gm% (0.0-3.0); Hemoglobin (Hb) 12.4 g/dL (14.0-18.0); O2 Tension (PaO2), arterial 149.9 mmHg (80.0-100.0); Potassium - ABG Lab 3.59 mmol/L (3.70-5.30); pH, Arterial 7.37 (7.35-7.45)
[2022-10-17 04:09] LABS: Puncture Site RRA
[2022-10-17 05:23] LABS: #Basophils 0.1 thou/uL (0.0-0.2); #Eosinphils 0.2 thou/uL (0.0-0.7); #Lymphocytes 1.8 thou/uL (1.20-3.40); #Monocytes 0.7 thou/uL (0.11-0.59); #Neutrophils 5.7 thou/uL (1.40-6.50); %Basophils 0.7 % (0.0-1.0); %Eosinophils 2.5 % (0.0-10.0); %Lymphocytes 20.9 % (21.0-51.0); %Monocytes 8.5 % (0.0-10.0); %Neutrophils 67.4 % (42.0-75.0); Hemoglobin 12.7 g/dL (14.0-18.0); Mean Corpuscular HGB CONC 32.4 g/dL (32.0-36.0); Mean Corpuscular Hemoglobin 30.2 pg (27.0-31.0); Mean Corpuscular Volume 93.3 fl (78.0-98.0); Platelet Count 164 10x3/uL (130-400); RBC Distribution Width 12.8 % (11.5-14.5); Red Blood Cell (RBC) Count 4.22 mill/uL (4.70-6.10); White Blood Cell (WBC) Count 8.5 10x3/uL (4.8-10.8)
[2022-10-17] MEDS ORDERED: Dextrose 50% Abboject 50 ML SYRINGE SLOW IVP PRN (05:38)
[2022-10-17] MEDS ORDERED: Dextrose 5% in Water 1,000 ML IV PRN (05:38)
[2022-10-17] MEDS: Dextrose 5 %-0.45 % NaCl 1,000 ML IV SCH ×3 (05:45→22:00)
[2022-10-17 05:47] LABS: Anion Gap 17 mmol/L (10-20); BUN (Urea Nitrogen) 33 mg/dL (8.9-20.6); CK (CPK) 80 U/L (30-200); Calc. Creatinine Clearance 80 mL/min (70-130); Calcium 9.7 mg/dL (7.8-10.44); Carbon Dioxide 16 mmol/L (22-29); Chloride 122 mmol/L (98-107); Estimated GFR 65; Glucose 125 mg/dL (70-105); Potassium 3.5 mmol/L (3.5-5.1)
[2022-10-17 05:51] LABS: Sodium 151 mmol/L (136-145)
[2022-10-17] MEDS ORDERED: levETIRAcetam 500 mg/5 ml Oral Solution PO SCH (09:00)
[2022-10-17] MEDS ORDERED: GLUCOSAMINE SULFATE 500 MG PO SCH (09:00)
[2022-10-17] MEDS ORDERED: Apixaban 5 MG TAB PO SCH (09:00)
[2022-10-17] MEDS ORDERED: Bupropion 150 MG SR TAB PO SCH (09:00)
[2022-10-17] MEDS ORDERED: Topiramate 100 MG TAB PO SCH (09:00)
[2022-10-17] MEDS ORDERED: FLUoxetine HCl 20 MG CAP PO SCH (09:00)
[2022-10-17] MEDS ORDERED: Lacosamide 50 mg Tablet PO SCH (09:00)
[2022-10-17] MEDS ORDERED: Amantadine HCl 100 mg Capsule PO SCH (09:00)
[2022-10-17 09:16] LABS: Legionella Urinary Ag Negative (Negative); Strep pneumo Urine Ag NEGATIVE (NEGATIVE)
[2022-10-17 09:35] LABS: Anion Gap 14 mmol/L (10-20); BUN (Urea Nitrogen) 31 mg/dL (8.9-20.6); Calc. Creatinine Clearance 84 mL/min (70-130); Calcium 9.6 mg/dL (7.8-10.44); Carbon Dioxide 17 mmol/L (22-29); Chloride 119 mmol/L (98-107); Estimated GFR 68; Glucose 154 mg/dL (70-105); Potassium 3.4 mmol/L (3.5-5.1); Sodium 147 mmol/L (136-145)
[2022-10-17] MEDS: Cholecalciferol 1,000 UNITS (25 MCG) TAB PO SCH (09:51)
[2022-10-17] MEDS: Aspirin Chewable 81 MG TAB PO SCH (09:51)
[2022-10-17] MEDS: Gabapentin 300 MG CAP PO SCH ×3 (09:51→20:29)
[2022-10-17] MEDS: Famotidine 20 MG TAB PO SCH (09:51)
[2022-10-17] MEDS: Folic Acid 1 MG TAB PO SCH (09:51)
[2022-10-17] MEDS: levETIRAcetam 500 MG/5 ML VIAL SLOW IVP SCH ×2 (09:52→20:31)
[2022-10-17] MEDS: Atorvastatin Calcium 20 MG TAB PO SCH (09:52)
[2022-10-17] MEDS: Polyethylene Glycol 3350 17 GM Packet PO SCH (09:52)
[2022-10-17] MEDS: Senokot 8.6 MG TAB PO SCH (09:53)
[2022-10-17] MEDS: Glycerin Adult Supp. (24 ct jar) PR SCH (12:20)
[2022-10-17 12:38] LABS: Anion Gap 13 mmol/L (10-20); BUN (Urea Nitrogen) 31 mg/dL (8.9-20.6); Calc. Creatinine Clearance 85 mL/min (70-130); Calcium 9.4 mg/dL (7.8-10.44); Carbon Dioxide 19 mmol/L (22-29); Chloride 120 mmol/L (98-107); Estimated GFR 69; Glucose 150 mg/dL (70-105); Potassium 3.3 mmol/L (3.5-5.1); Sodium 149 mmol/L (136-145)
[2022-10-17] MEDS: Lacosamide 200 MG in Sodium Chloride 0.9% 50 ML IVPB SCH (14:31)
[2022-10-17] MEDS ORDERED: Electrolyte Replacement Protocol 1 EACH FS SCH (16:00)
[2022-10-17] MEDS ORDERED: Potassium Chloride 40 MEQ in Premix Bag 1 BAG IVPB SCH (16:00)
[2022-10-17] MEDS: Potassium Chloride 20 MEQ in Premix Bag 1 BAG IVPB SCH ×2 (16:22→17:48)
[2022-10-17] MEDS ORDERED: traZODone HCl 50 MG TAB PO SCH (21:00)
[2022-10-18] MEDS: Lacosamide 200 MG in Sodium Chloride 0.9% 50 ML IVPB SCH ×2 (02:32→14:59)
[2022-10-18] MEDS ORDERED: Lactated Ringer's 500 ML IV SCH (03:05)
[2022-10-18] MEDS: Propofol 1,000 MG/100 ML VIAL IV PRN ×3 (06:26→21:33)
[2022-10-18] MEDS: Lorazepam 2 MG/ML VIAL SLOW IVP PRN ×2 (08:04→16:19)
[2022-10-18] MEDS: Famotidine 20 MG TAB PO SCH (10:17)
[2022-10-18] MEDS: Senokot 8.6 MG TAB PO SCH (10:17)
[2022-10-18] MEDS: Polyethylene Glycol 3350 17 GM Packet PO SCH (10:17)
[2022-10-18] MEDS: Aspirin Chewable 81 MG TAB PO SCH (10:18)
[2022-10-18] MEDS: Folic Acid 1 MG TAB PO SCH (10:18)
[2022-10-18] MEDS: Gabapentin 300 MG CAP PO SCH ×3 (10:18→20:25)
[2022-10-18] MEDS: Atorvastatin Calcium 20 MG TAB PO SCH (10:18)
[2022-10-18] MEDS: levETIRAcetam 500 MG/5 ML VIAL SLOW IVP SCH ×2 (10:20→20:27)
[2022-10-18] MEDS: Dextrose 5 %-0.45 % NaCl 1,000 ML IV SCH ×2 (10:21→12:12)
[2022-10-18] MEDS: Glycerin Adult Supp. (24 ct jar) PR SCH (10:43)
[2022-10-18 12:06] LABS: Anion Gap 10 mmol/L (10-20); BUN (Urea Nitrogen) 15 mg/dL (8.9-20.6); Calc. Creatinine Clearance 120 mL/min (70-130); Calcium 8.2 mg/dL (7.8-10.44); Carbon Dioxide 20 mmol/L (22-29); Chloride 116 mmol/L (98-107); Estimated GFR 104; Glucose 231 mg/dL (70-105); Potassium 3.2 mmol/L (3.5-5.1); Sodium 143 mmol/L (136-145)
[2022-10-18] MEDS: Cefepime 2 GM in Sodium Chloride 0.9% 100 ML IVPB SCH ×2 (12:19→23:23)
[2022-10-18] MEDS: Cholecalciferol 1,000 UNITS (25 MCG) TAB PO SCH (12:20)
[2022-10-18] MEDS ORDERED: Potassium Chloride 40 MEQ/100 ML PREMIX BAG IVPB SCH (13:15)
[2022-10-18] MEDS: NOREPINEPHRINE 8 MG/250 ML-D5W 250 ML IVPB SCH (21:33)
[2022-10-19] MEDS: Lacosamide 200 MG in Sodium Chloride 0.9% 50 ML IVPB SCH ×3 (02:55→15:16)
[2022-10-19] MEDS: Propofol 1,000 MG/100 ML VIAL IV PRN ×2 (03:38→08:45)
[2022-10-19 04:55] LABS: Anion Gap 10 mmol/L (10-20); BUN (Urea Nitrogen) 11 mg/dL (8.9-20.6); Calc. Creatinine Clearance 128 mL/min (70-130); Carbon Dioxide 22 mmol/L (22-29); Chloride 112 mmol/L (98-107); Estimated GFR 110; Glucose 105 mg/dL (70-105); Potassium 3.5 mmol/L (3.5-5.1); Sodium 140 mmol/L (136-145)
[2022-10-19] MEDS: levETIRAcetam 500 MG/5 ML VIAL SLOW IVP SCH ×2 (07:54→20:42)
[2022-10-19] MEDS: Gabapentin 300 MG CAP PO SCH ×3 (07:55→20:41)
[2022-10-19] MEDS: Senokot 8.6 MG TAB PO SCH (07:56)
[2022-10-19] MEDS: Famotidine 20 MG TAB PO SCH (07:56)
[2022-10-19] MEDS: Atorvastatin Calcium 20 MG TAB PO SCH (07:56)
[2022-10-19] MEDS: Aspirin Chewable 81 MG TAB PO SCH (07:56)
[2022-10-19] MEDS: Polyethylene Glycol 3350 17 GM Packet PO SCH (07:56)
[2022-10-19] MEDS: Folic Acid 1 MG TAB PO SCH (07:56)
[2022-10-19] MEDS: Dextrose 5 %-0.45 % NaCl 1,000 ML IV SCH (08:43)
[2022-10-19] MEDS: Potassium Chloride 20 MEQ in Premix Bag 1 BAG IVPB SCH ×2 (08:45→11:05)
[2022-10-19] MEDS: Lorazepam 2 MG/ML VIAL SLOW IVP PRN (08:46)
[2022-10-19] MEDS: Cholecalciferol 1,000 UNITS (25 MCG) TAB PO SCH ×2 (08:48→09:17)
[2022-10-19] MEDS: Glycerin Adult Supp. (24 ct jar) PR SCH ×2 (08:48→09:17)
[2022-10-19] MEDS: Cefepime 2 GM in Sodium Chloride 0.9% 100 ML IVPB SCH ×2 (11:05→23:05)
[2022-10-19 16:52] LABS: Potassium 4.6 mmol/L (3.5-5.1)
[2022-10-20] MEDS: Dextrose 5 %-0.45 % NaCl 1,000 ML IV SCH ×2 (03:24→21:35)
[2022-10-20 05:30] LABS: Anion Gap 12 mmol/L (10-20); BUN (Urea Nitrogen) 10 mg/dL (8.9-20.6); Calc. Creatinine Clearance 146 mL/min (70-130); Calcium 9.1 mg/dL (7.8-10.44); Carbon Dioxide 22 mmol/L (22-29); Chloride 109 mmol/L (98-107); Estimated GFR 115; Glucose 131 mg/dL (70-105); Potassium 3.9 mmol/L (3.5-5.1); Sodium 139 mmol/L (136-145)
[2022-10-20] MEDS: Senokot 8.6 MG TAB PO SCH (09:32)
[2022-10-20] MEDS: Gabapentin 300 MG CAP PO SCH ×3 (09:32→20:50)
[2022-10-20] MEDS: Atorvastatin Calcium 20 MG TAB PO SCH (09:33)
[2022-10-20] MEDS: Folic Acid 1 MG TAB PO SCH (09:33)
[2022-10-20] MEDS: Aspirin Chewable 81 MG TAB PO SCH (09:33)
[2022-10-20] MEDS: Lactated Ringer's 1,000 ML IV SCH ×2 (09:35→21:31)
[2022-10-20] MEDS: Polyethylene Glycol 3350 17 GM Packet PO SCH (09:36)
[2022-10-20] MEDS: levETIRAcetam 500 MG/5 ML VIAL SLOW IVP SCH ×2 (09:36→20:51)
[2022-10-20] MEDS: Famotidine 20 MG TAB PO SCH (09:39)
[2022-10-20] MEDS: Scopolamine 1.5 mg/72 hour Patch TD SCH (09:59)
[2022-10-20] MEDS: Cefepime 2 GM in Sodium Chloride 0.9% 100 ML IVPB SCH ×2 (10:41→23:02)
[2022-10-20] MEDS: NOREPINEPHRINE 8 MG/250 ML-D5W 250 ML IVPB SCH (10:41)
[2022-10-20] MEDS: Propofol 1,000 MG/100 ML VIAL IV PRN ×2 (10:41→23:02)
[2022-10-20] MEDS: Lacosamide 200 MG in Sodium Chloride 0.9% 50 ML IVPB SCH (17:18)
[2022-10-21] MEDS: Lacosamide 200 MG in Sodium Chloride 0.9% 50 ML IVPB SCH ×2 (02:39→16:46)
[2022-10-21 04:13] LABS: Anion Gap 11 mmol/L (10-20); BUN (Urea Nitrogen) 11 mg/dL (8.9-20.6); Calc. Creatinine Clearance 154 mL/min (70-130); Calcium 9.3 mg/dL (7.8-10.44); Carbon Dioxide 25 mmol/L (22-29); Chloride 105 mmol/L (98-107); Estimated GFR 116; Glucose 130 mg/dL (70-105); Sodium 137 mmol/L (136-145)
[2022-10-21] MEDS: NOREPINEPHRINE 8 MG/250 ML-D5W 250 ML IVPB SCH (05:30)
[2022-10-21] MEDS: Polyethylene Glycol 3350 17 GM Packet PO SCH (09:01)
[2022-10-21] MEDS: levETIRAcetam 500 MG/5 ML VIAL SLOW IVP SCH ×2 (09:01→20:48)
[2022-10-21] MEDS: Gabapentin 300 MG CAP PO SCH ×3 (09:01→20:49)
[2022-10-21] MEDS: Atorvastatin Calcium 20 MG TAB PO SCH (09:02)
[2022-10-21] MEDS: Famotidine 20 MG TAB PO SCH (09:02)
[2022-10-21] MEDS: Folic Acid 1 MG TAB PO SCH (09:02)
[2022-10-21] MEDS: Cholecalciferol 1,000 UNITS (25 MCG) TAB PO SCH (09:02)
[2022-10-21] MEDS: Aspirin Chewable 81 MG TAB PO SCH (09:02)
[2022-10-21] MEDS: Glycerin Adult Supp. (24 ct jar) PR SCH (09:03)
[2022-10-21] MEDS: Lactated Ringer's 1,000 ML IV SCH ×2 (12:27→16:52)
[2022-10-21] MEDS: Cefepime 2 GM in Sodium Chloride 0.9% 100 ML IVPB SCH (12:27)
[2022-10-21] MEDS: Dextrose 5 %-0.45 % NaCl 1,000 ML IV SCH (17:59)
[2022-10-22] MEDS: Cefepime 2 GM in Sodium Chloride 0.9% 100 ML IVPB SCH ×3 (00:25→23:59)
[2022-10-22] MEDS: Propofol 1,000 MG/100 ML VIAL IV PRN ×2 (00:26→07:53)
[2022-10-22] MEDS: Lacosamide 200 MG in Sodium Chloride 0.9% 50 ML IVPB SCH ×2 (02:17→14:42)
[2022-10-22 04:22] LABS: #Eosinphils 0.2 thou/uL (0.0-0.7); #Lymphocytes 0.7 thou/uL (1.20-3.40); #Monocytes 0.6 thou/uL (0.11-0.59); #Neutrophils 2.5 thou/uL (1.40-6.50); %Basophils 0.4 % (0.0-1.0); %Eosinophils 4.2 % (0.0-10.0); %Lymphocytes 17.2 % (21.0-51.0); %Monocytes 14.8 % (0.0-10.0); %Neutrophils 63.4 % (42.0-75.0); Hemoglobin 10.6 g/dL (14.0-18.0); Mean Corpuscular HGB CONC 33.9 g/dL (32.0-36.0); Mean Corpuscular Hemoglobin 30.8 pg (27.0-31.0); Mean Platelet Volume 8.5 fL (7.4-10.4); Platelet Count 116 10x3/uL (130-400); RBC Distribution Width 12.6 % (11.5-14.5); Red Blood Cell (RBC) Count 3.43 mill/uL (4.70-6.10)
[2022-10-22 04:35] LABS: Anion Gap 12 mmol/L (10-20); BUN (Urea Nitrogen) 13 mg/dL (8.9-20.6); Calc. Creatinine Clearance 158 mL/min (70-130); Calcium 8.9 mg/dL (7.8-10.44); Carbon Dioxide 22 mmol/L (22-29); Chloride 106 mmol/L (98-107); Estimated GFR 117; Glucose 106 mg/dL (70-105); Sodium 136 mmol/L (136-145)
[2022-10-22] MEDS: Lactated Ringer's 1,000 ML IV SCH ×2 (05:09→23:09)
[2022-10-22] MEDS: Atorvastatin Calcium 20 MG TAB PO SCH (09:01)
[2022-10-22] MEDS: levETIRAcetam 500 MG/5 ML VIAL SLOW IVP SCH ×2 (09:01→22:00)
[2022-10-22] MEDS: Gabapentin 300 MG CAP PO SCH ×3 (09:01→21:00)
[2022-10-22] MEDS: Cholecalciferol 1,000 UNITS (25 MCG) TAB PO SCH (09:02)
[2022-10-22] MEDS: Senokot 8.6 MG TAB PO SCH (09:02)
[2022-10-22] MEDS: Folic Acid 1 MG TAB PO SCH (09:02)
[2022-10-22] MEDS: Famotidine 20 MG TAB PO SCH (09:03)
[2022-10-22] MEDS: Polyethylene Glycol 3350 17 GM Packet PO SCH (09:03)
[2022-10-22] MEDS: Aspirin Chewable 81 MG TAB PO SCH (09:03)
[2022-10-22] MEDS: Glycerin Adult Supp. (24 ct jar) PR SCH (09:03)
[2022-10-22] MEDS: LEVOMEFOLATE PO SCH ×4 (09:34→09:37)
[2022-10-22] MEDS: ALGAL OIL PO SCH ×4 (09:34→09:37)
[2022-10-22] MEDS: ARMODAFINIL 50 MG PO SCH ×4 (09:34→09:37)
[2022-10-22] MEDS ORDERED: Racepinephrine 2.25% 0.5 ML NEB NEB PRN (11:24)
[2022-10-22] MEDS ORDERED: Dexamethasone 10 MG/ML VIAL SLOW IVP SCH (11:30)
[2022-10-22] MEDS ORDERED: Racepinephrine 2.25% 0.5 ML NEB ONE (12:49)
[2022-10-22] MEDS: Dextrose 5 %-0.45 % NaCl 1,000 ML IV SCH (14:43)
[2022-10-23] MEDS: Lacosamide 200 MG in Sodium Chloride 0.9% 50 ML IVPB SCH ×2 (03:44→14:33)
[2022-10-23] MEDS: levETIRAcetam 500 MG/5 ML VIAL SLOW IVP SCH ×2 (08:41→21:21)
[2022-10-23] MEDS: Scopolamine 1.5 mg/72 hour Patch TD SCH (10:15)
[2022-10-23] MEDS: Polyethylene Glycol 3350 17 GM Packet PO SCH (11:52)
[2022-10-23] MEDS: Senokot 8.6 MG TAB PO SCH (11:52)
[2022-10-23] MEDS: Glycerin Adult Supp. (24 ct jar) PR SCH (11:52)
[2022-10-23] MEDS: Cefepime 2 GM in Sodium Chloride 0.9% 100 ML IVPB SCH (11:57)
[2022-10-23] MEDS: Cholecalciferol 1,000 UNITS (25 MCG) TAB PO SCH (12:21)
[2022-10-23] MEDS: Folic Acid 1 MG TAB PO SCH (12:22)
[2022-10-23] MEDS: Aspirin Chewable 81 MG TAB PO SCH (12:22)
[2022-10-23] MEDS: Famotidine 20 MG TAB PO SCH (12:22)
[2022-10-23] MEDS: Gabapentin 300 MG CAP PO SCH ×3 (12:22→21:20)
[2022-10-23] MEDS: Atorvastatin Calcium 20 MG TAB PO SCH (12:22)
[2022-10-23] MEDS: Dextrose 5 %-0.45 % NaCl 1,000 ML IV SCH (12:51)
[2022-10-23] MEDS: Lactated Ringer's 1,000 ML IV SCH (14:34)
[2022-10-24] MEDS: Lacosamide 200 MG in Sodium Chloride 0.9% 50 ML IVPB SCH ×2 (03:08→15:48)
[2022-10-24] MEDS: Lactated Ringer's 1,000 ML IV SCH ×2 (03:09→20:19)
[2022-10-24] MEDS: Aspirin Chewable 81 MG TAB PO SCH (08:34)
[2022-10-24] MEDS: Glycerin Adult Supp. (24 ct jar) PR SCH (08:34)
[2022-10-24] MEDS: Famotidine 20 MG TAB PO SCH (08:34)
[2022-10-24] MEDS: Gabapentin 300 MG CAP PO SCH ×3 (08:34→20:17)
[2022-10-24] MEDS: Atorvastatin Calcium 20 MG TAB PO SCH (08:34)
[2022-10-24] MEDS: Folic Acid 1 MG TAB PO SCH (08:34)
[2022-10-24] MEDS: Cholecalciferol 1,000 UNITS (25 MCG) TAB PO SCH (08:35)
[2022-10-24] MEDS: Polyethylene Glycol 3350 17 GM Packet PO SCH (08:35)
[2022-10-24] MEDS: Senokot 8.6 MG TAB PO SCH (08:35)
[2022-10-24] MEDS: levETIRAcetam 500 MG/5 ML VIAL SLOW IVP SCH ×2 (08:35→20:15)
[2022-10-24] MEDS ORDERED: CEFAZOLIN 2 GM in Sodium Chloride 0.9% 100 ML IVPB SCH (21:45)
[2022-10-25] MEDS: Lacosamide 200 MG in Sodium Chloride 0.9% 50 ML IVPB SCH ×2 (02:45→16:07)
[2022-10-25] MEDS: Cholecalciferol 1,000 UNITS (25 MCG) TAB PO SCH (07:49)
[2022-10-25] MEDS: Atorvastatin Calcium 20 MG TAB PO SCH (07:49)
[2022-10-25] MEDS: Aspirin Chewable 81 MG TAB PO SCH (07:49)
[2022-10-25] MEDS: Senokot 8.6 MG TAB PO SCH (07:50)
[2022-10-25] MEDS: Polyethylene Glycol 3350 17 GM Packet PO SCH (07:50)
[2022-10-25] MEDS: Famotidine 20 MG TAB PO SCH (07:50)
[2022-10-25] MEDS: Glycerin Adult Supp. (24 ct jar) PR SCH (07:50)
[2022-10-25] MEDS: Gabapentin 300 MG CAP PO SCH ×3 (07:50→20:24)
[2022-10-25] MEDS: Folic Acid 1 MG TAB PO SCH (07:50)
[2022-10-25] MEDS: levETIRAcetam 500 MG/5 ML VIAL SLOW IVP SCH ×2 (08:03→20:24)
[2022-10-25] MEDS: Lactated Ringer's 1,000 ML IV SCH ×2 (08:08→20:24)
[2022-10-25] MEDS ORDERED: Sodium Chloride 0.9% 100 ML ONE (09:48)
[2022-10-25] MEDS ORDERED: CEFAZOLIN 2 GM VIAL ONE (09:48)
[2022-10-25] MEDS ORDERED: SUGAMMADEX SODIUM 200 MG/2 ML VIAL ONE (09:55)
[2022-10-25] MEDS ORDERED: ePHEDrine Sulfate 50 MG/10 ML VIAL ONE ×2 (10:07→11:10)
[2022-10-25] MEDS ORDERED: Phenylephrine 10 MG/ML VIAL ONE (10:07)
[2022-10-25] MEDS ORDERED: PROPOFOL 200 MG/20 ML VIAL ONE (10:07)
[2022-10-25] MEDS ORDERED: Lidocaine 1% PF 5 ML VIAL ONE (10:07)
[2022-10-25] MEDS ORDERED: Rocuronium Bromide 10 MG/ML (10ML VIAL) ONE (10:07)
[2022-10-25] MEDS ORDERED: Pantoprazole 40 MG VIAL IVP SCH (13:15)
[2022-10-26] MEDS: Lacosamide 200 MG in Sodium Chloride 0.9% 50 ML IVPB SCH ×2 (03:40→14:27)
[2022-10-26] MEDS: levETIRAcetam 500 MG/5 ML VIAL SLOW IVP SCH ×2 (11:06→21:14)
[2022-10-26] MEDS: Scopolamine 1.5 mg/72 hour Patch TD SCH (11:06)
[2022-10-26] MEDS: Pantoprazole 40 MG VIAL IVP SCH (11:07)
[2022-10-26] MEDS: Cholecalciferol 1,000 UNITS (25 MCG) TAB PO SCH (11:07)
[2022-10-26] MEDS: Aspirin Chewable 81 MG TAB PO SCH (11:08)
[2022-10-26] MEDS: Gabapentin 300 MG CAP PO SCH ×3 (11:08→21:14)
[2022-10-26] MEDS: Atorvastatin Calcium 20 MG TAB PO SCH (11:08)
[2022-10-26] MEDS: Senokot 8.6 MG TAB PO SCH (11:08)
[2022-10-26] MEDS: Folic Acid 1 MG TAB PO SCH (11:08)
[2022-10-26] MEDS: Polyethylene Glycol 3350 17 GM Packet PO SCH (11:09)
[2022-10-26] MEDS: Glycerin Adult Supp. (24 ct jar) PR SCH (11:10)
[2022-10-26 12:52] VITALS: BMI 24.5
[2022-10-26] MEDS: Lactated Ringer's 1,000 ML IV SCH (14:26)
[2022-10-27] MEDS: Lactated Ringer's 1,000 ML IV SCH ×2 (00:48→17:50)
[2022-10-27] MEDS: Lacosamide 200 MG in Sodium Chloride 0.9% 50 ML IVPB SCH (03:24)
[2022-10-27 07:33] LABS: #Eosinphils 0.1 thou/uL (0.0-0.7); #Lymphocytes 0.9 thou/uL (1.20-3.40); #Monocytes 0.4 thou/uL (0.11-0.59); #Neutrophils 4.7 thou/uL (1.40-6.50); %Basophils 0.5 % (0.0-1.0); %Eosinophils 2.1 % (0.0-10.0); %Lymphocytes 14.5 % (21.0-51.0); %Monocytes 6.7 % (0.0-10.0); %Neutrophils 76.2 % (42.0-75.0); Hemoglobin 11.8 g/dL (14.0-18.0); Mean Corpuscular HGB CONC 33.4 g/dL (32.0-36.0); Mean Corpuscular Hemoglobin 30.6 pg (27.0-31.0); Mean Corpuscular Volume 91.7 fl (78.0-98.0); Mean Platelet Volume 7.2 fL (7.4-10.4); Platelet Count 229 10x3/uL (130-400); RBC Distribution Width 13.3 % (11.5-14.5); Red Blood Cell (RBC) Count 3.84 mill/uL (4.70-6.10); White Blood Cell (WBC) Count 6.1 10x3/uL (4.8-10.8)
[2022-10-27 07:56] LABS: ALT (SGPT) 19 U/L (8-55); AST (SGOT) 13 U/L (5-34); Albumin 3.4 g/dL (3.5-5.0); Alkaline Phosphatase 93 U/L (40-110); Anion Gap 10 mmol/L (10-20); BUN (Urea Nitrogen) 7 mg/dL (8.9-20.6); Bilirubin, Total 0.4 mg/dL (0.2-1.2); Calc. Creatinine Clearance 189 mL/min (70-130); Calcium 8.2 mg/dL (7.8-10.44); Carbon Dioxide 26 mmol/L (22-29); Chloride 104 mmol/L (98-107); Estimated GFR 125; Globulin 2.5 g/dL (2.4-3.5); Glucose 120 mg/dL (70-105); Potassium 2.8 mmol/L (3.5-5.1); Protein, Total 5.9 g/dL (6.0-8.3); Sodium 137 mmol/L (136-145)
[2022-10-27] MEDS: Cholecalciferol 1,000 UNITS (25 MCG) TAB PO SCH (10:36)
[2022-10-27] MEDS: Senokot 8.6 MG TAB PO SCH (10:37)
[2022-10-27] MEDS: Aspirin Chewable 81 MG TAB PO SCH (10:37)
[2022-10-27] MEDS: Potassium Chloride 20 MEQ TAB PO SCH ×2 (10:37→14:29)
[2022-10-27] MEDS: Folic Acid 1 MG TAB PO SCH (10:37)
[2022-10-27] MEDS: Atorvastatin Calcium 20 MG TAB PO SCH (10:37)
[2022-10-27] MEDS: Gabapentin 300 MG CAP PO SCH ×3 (10:37→20:40)
[2022-10-27] MEDS: Pantoprazole 40 MG VIAL IVP SCH (10:38)
[2022-10-27] MEDS: levETIRAcetam 500 MG/5 ML VIAL SLOW IVP SCH (10:38)
[2022-10-27] MEDS: Polyethylene Glycol 3350 17 GM Packet PO SCH (10:38)
[2022-10-27] MEDS: Glycerin Adult Supp. (24 ct jar) PR SCH (10:39)
[2022-10-27 10:50] LABS: Magnesium 1.7 mg/dL (1.6-2.6); Phosphorus 2.1 mg/dL (2.3-4.7)
[2022-10-27] MEDS ORDERED: Magnesium 2 GM/50 ML(in water) 2 GM in Premix Bag 1 BAG IVPB SCH (11:15)
[2022-10-27] MEDS: Lacosamide 50 mg Tablet PER TUBE SCH (14:30)
[2022-10-27] MEDS: levETIRAcetam 500 MG TAB PER TUBE SCH (20:39)
[2022-10-28] MEDS: Lacosamide 50 mg Tablet PER TUBE SCH ×2 (03:00→16:31)
[2022-10-28] MEDS: Lactated Ringer's 1,000 ML IV SCH ×2 (03:00→16:32)
[2022-10-28 05:17] LABS: #Eosinphils 0.2 thou/uL (0.0-0.7); #Monocytes 0.5 thou/uL (0.11-0.59); #Neutrophils 3.9 thou/uL (1.40-6.50); %Basophils 0.3 % (0.0-1.0); %Eosinophils 3.1 % (0.0-10.0); %Lymphocytes 17.6 % (21.0-51.0); %Monocytes 8.2 % (0.0-10.0); %Neutrophils 70.8 % (42.0-75.0); Hemoglobin 11.7 g/dL (14.0-18.0); Mean Corpuscular HGB CONC 32.3 g/dL (32.0-36.0); Mean Corpuscular Hemoglobin 30.2 pg (27.0-31.0); Mean Corpuscular Volume 93.4 fl (78.0-98.0); Mean Platelet Volume 7.2 fL (7.4-10.4); Platelet Count 236 10x3/uL (130-400); RBC Distribution Width 13.7 % (11.5-14.5); Red Blood Cell (RBC) Count 3.89 mill/uL (4.70-6.10); White Blood Cell (WBC) Count 5.5 10x3/uL (4.8-10.8)
[2022-10-28 06:05] LABS: Anion Gap 14 mmol/L (10-20); BUN (Urea Nitrogen) 4 mg/dL (8.9-20.6); Calc. Creatinine Clearance 185 mL/min (70-130); Calcium 8.2 mg/dL (7.8-10.44); Carbon Dioxide 23 mmol/L (22-29); Chloride 107 mmol/L (98-107); Estimated GFR 124; Glucose 119 mg/dL (70-105); Potassium 3.1 mmol/L (3.5-5.1); Sodium 141 mmol/L (136-145)
[2022-10-28] MEDS ORDERED: Potassium Chloride 20 MEQ TAB PO SCH (08:00)
[2022-10-28] MEDS: Aspirin Chewable 81 MG TAB PO SCH (10:16)
[2022-10-28] MEDS: Gabapentin 300 MG CAP PO SCH ×3 (10:16→21:09)
[2022-10-28] MEDS: levETIRAcetam 500 MG TAB PER TUBE SCH ×2 (10:16→21:09)
[2022-10-28] MEDS: Atorvastatin Calcium 20 MG TAB PO SCH (10:16)
[2022-10-28] MEDS: Cholecalciferol 1,000 UNITS (25 MCG) TAB PO SCH (10:16)
[2022-10-28] MEDS: Glycerin Adult Supp. (24 ct jar) PR SCH (10:17)
[2022-10-28] MEDS: Pantoprazole 40 MG VIAL IVP SCH (10:17)
[2022-10-28] MEDS: Folic Acid 1 MG TAB PO SCH (10:17)
[2022-10-28] MEDS: Polyethylene Glycol 3350 17 GM Packet PO SCH (10:17)
[2022-10-28] MEDS: Senokot 8.6 MG TAB PO SCH (10:18)
[2022-10-28] MEDS ORDERED: Silver Nitrate Application 1 EACH TOP SCH (12:15)
[2022-10-28 14:10] LABS: Hemoglobin 11.8 g/dL (14.0-18.0)
[2022-10-28 14:59] LABS: INR-International Normal Ratio 0.9; Prothrombin Time 12.5 sec (12.0-14.7)
[2022-10-28] MEDS ORDERED: Lacosamide 50 mg Tablet PER TUBE SCH (16:30)
[2022-10-28 20:24] LABS: Hemoglobin 11.1 g/dL (14.0-18.0)
[2022-10-29] MEDS: Lactated Ringer's 1,000 ML IV SCH ×2 (00:44→13:48)
[2022-10-29] MEDS ORDERED: Lacosamide 50 mg Tablet PER TUBE SCH (03:00)
[2022-10-29] MEDS: Lacosamide 200 MG in Sodium Chloride 0.9% 50 ML IVPB SCH ×2 (04:11→15:07)
[2022-10-29 08:30] LABS: #Eosinphils 0.2 thou/uL (0.0-0.7); #Lymphocytes 0.9 thou/uL (1.20-3.40); #Monocytes 0.3 thou/uL (0.11-0.59); #Neutrophils 2.7 thou/uL (1.40-6.50); %Eosinophils 4.3 % (0.0-10.0); %Lymphocytes 21.1 % (21.0-51.0); %Monocytes 7.1 % (0.0-10.0); %Neutrophils 66.5 % (42.0-75.0); Hemoglobin 10.8 g/dL (14.0-18.0); Mean Corpuscular HGB CONC 33.3 g/dL (32.0-36.0); Mean Corpuscular Hemoglobin 30.7 pg (27.0-31.0); Mean Corpuscular Volume 92.2 fl (78.0-98.0); Mean Platelet Volume 6.9 fL (7.4-10.4); Platelet Count 241 10x3/uL (130-400); RBC Distribution Width 13.5 % (11.5-14.5); Red Blood Cell (RBC) Count 3.51 mill/uL (4.70-6.10); White Blood Cell (WBC) Count 4.1 10x3/uL (4.8-10.8)
[2022-10-29] MEDS: Glycerin Adult Supp. (24 ct jar) PR SCH (08:49)
[2022-10-29] MEDS: Polyethylene Glycol 3350 17 GM Packet PO SCH ×2 (08:50→08:57)
[2022-10-29] MEDS: Senokot 8.6 MG TAB PO SCH ×3 (08:50→08:58)
[2022-10-29] MEDS: Cholecalciferol 1,000 UNITS (25 MCG) TAB PO SCH (08:51)
[2022-10-29] MEDS: levETIRAcetam 500 MG TAB PER TUBE SCH (08:52)
[2022-10-29] MEDS: Gabapentin 300 MG CAP PO SCH ×2 (08:53→15:07)
[2022-10-29] MEDS: Atorvastatin Calcium 20 MG TAB PO SCH (08:53)
[2022-10-29] MEDS: Aspirin Chewable 81 MG TAB PO SCH (08:53)
[2022-10-29] MEDS: Folic Acid 1 MG TAB PO SCH (08:53)
[2022-10-29] MEDS: Pantoprazole 40 MG VIAL IVP SCH (08:54)
[2022-10-29] MEDS: Scopolamine 1.5 mg/72 hour Patch TD SCH (08:55)
[2022-10-29 09:00] LABS: Anion Gap 9 mmol/L (10-20); BUN (Urea Nitrogen) 5 mg/dL (8.9-20.6); Calc. Creatinine Clearance 204 mL/min (70-130); Calcium 8.5 mg/dL (7.8-10.44); Carbon Dioxide 29 mmol/L (22-29); Chloride 105 mmol/L (98-107); Estimated GFR 128; Glucose 119 mg/dL (70-105); Potassium 3.3 mmol/L (3.5-5.1); Sodium 140 mmol/L (136-145)
[2022-10-29] MEDS ORDERED: Potassium Chloride 20 MEQ TAB PO SCH (09:30)
[2022-10-29 11:36] VITALS: BP 113/75
[2022-10-29 12:08] VITALS: TEMP 98
== END 2022-10-29 18:45 | DRG 870 ==
LOC: ERS 17:11 → MSONC 20:13 → IMCU/EMU 10-17 01:53 → CCU 10-17 02:48 → IMCU/EMU 10-24 14:34
PROVIDERS: ADMIT Student in an Organized Health Care Education/Training Program; ATTEND Internal Medicine
PROC: 3E03329 Introduction of Other Anti-infective into Peripheral Vein, Percutaneous Approach (ICD-10-PCS; 2022-10-16)
PROC: 5A1955Z Respiratory Ventilation, Greater than 96 Consecutive Hours (ICD-10-PCS; principal; 2022-10-17)
PROC: 0BH17EZ Insertion of Endotracheal Airway into Trachea, Via Natural or Artificial Opening (ICD-10-PCS; 2022-10-17)
PROC: 4A033R1 Measurement of Arterial Saturation, Peripheral, Percutaneous Approach (ICD-10-PCS; 2022-10-17)
PROC: 4A10X4Z Monitoring of Central Nervous Electrical Activity, External Approach (ICD-10-PCS; 2022-10-17)
PROC: 3E033XZ Introduction of Vasopressor into Peripheral Vein, Percutaneous Approach (ICD-10-PCS; 2022-10-17)
PROC: 4A10X4Z Monitoring of Central Nervous Electrical Activity, External Approach (ICD-10-PCS; 2022-10-18)
PROC: 0D9670Z Drainage of Stomach with Drainage Device, Via Natural or Artificial Opening (ICD-10-PCS; 2022-10-23)
PROC: 0DH63UZ Insertion of Feeding Device into Stomach, Percutaneous Approach (ICD-10-PCS; 2022-10-25)
DX: A41.9 Sepsis, unspecified organism (principal); J96.01 Acute respiratory failure with hypoxia; R65.21 Severe sepsis with septic shock; G93.41 Metabolic encephalopathy; R53.2 Functional quadriplegia; J69.0 Pneumonitis due to inhalation of food and vomit; E87.1 Hypo-osmolality and hyponatremia; N17.9 Acute kidney failure, unspecified; E87.0 Hyperosmolality and hypernatremia; G93.40 Encephalopathy, unspecified; K56.7 Ileus, unspecified; E87.20 Acidosis, unspecified; I69.951 Hemiplegia and hemiparesis following unspecified cerebrovascular disease affecting right dominant side; E44.0 Moderate protein-calorie malnutrition; Z66 Do not resuscitate; Z51.5 Encounter for palliative care; K21.9 Gastro-esophageal reflux disease without esophagitis; F32.A Depression, unspecified; F41.9 Anxiety disorder, unspecified; E86.0 Dehydration; Z20.822 Contact with and (suspected) exposure to COVID-19; I12.9 Hypertensive chronic kidney disease with stage 1 through stage 4 chronic kidney disease, or unspecified chronic kidney disease; R73.9 Hyperglycemia, unspecified; E87.8 Other disorders of electrolyte and fluid balance, not elsewhere classified; E87.6 Hypokalemia; N18.2 Chronic kidney disease, stage 2 (mild); G40.901 Epilepsy, unspecified, not intractable, with status epilepticus; D63.1 Anemia in chronic kidney disease; K29.70 Gastritis, unspecified, without bleeding; K20.90 Esophagitis, unspecified without bleeding; R13.12 Dysphagia, oropharyngeal phase; R31.9 Hematuria, unspecified; Z86.711 Personal history of pulmonary embolism; Z90.49 Acquired absence of other specified parts of digestive tract; Z98.890 Other specified postprocedural states; Z79.01 Long term (current) use of anticoagulants; Z79.82 Long term (current) use of aspirin; Z79.899 Other long term (current) drug therapy; I69.320 Aphasia following cerebral infarction; G93.89 Other specified disorders of brain; E78.5 Hyperlipidemia, unspecified; D64.9 Anemia, unspecified; Z86.718 Personal history of other venous thrombosis and embolism; Z68.25 Body mass index [BMI] 25.0-25.9, adult
CPT/HCPCS: 36415; 36416; 36600; 70450; 71045; 74018; 74177; 80048; 80053; 81003; 81015; 82550; 82805; 83605; 83735; 84100; 84145; 84146; 84443; 84484; 85025; 85610; 85730; 86140; 87040; 87081; 87086; 87149; 87449; 87899; 93005; 93010; 94002; 94003; 94640; 95712; 95816; 95819; 95957; C9113; C9254; J0692; J1100; J1650; J1885; J1953; J1956; J2060; J2370; J2543; J2704; J2765; J3370-JW; J3475; J3480; J3490; J7042; J7050; J7120; Q9967; S0028; U0002; U0003; U0005

== ENCOUNTER 2022-10-30 06:20 | Inpatient (IN) | payer OTHER ==
[2022-10-30 09:04] LABS: Actual Bicarbonate (HCO3v) 26 mEq/L (22-28); Analyzer IN Cardio ER; Chloride (VBG) 100 mmol/L (98-106); Hemoglobin (Hb) 13.8 g/dL (13.2-17.3); Potassium (VBG) 4.07 mmol/L (3.70-5.30); Sodium 137.1 mmol/L (133-146); pH (venous) 7.41 (7.32-7.43)
[2022-10-30] MEDS ORDERED: LORazepam 2 MG/ML SYR.(CARPUJECT) ONE ×4 (09:06→10:00)
[2022-10-30] MEDS ORDERED: levETIRAcetam 500 MG/5 ML VIAL ONE (09:07)
[2022-10-30 09:29] LABS: Bacteria/HPF None Seen HPF (None Seen); Bilirubin Negative (Negative); Blood, Urine Trace (Negative); Clarity Clear (Clear); Glucose, Urine (Dipstick) 50 mg/dL (Negative); Ketone, Urine Negative (Negative); Leukocyte Negative Leu/uL (Negative); Nitrite Negative (Negative); Protein, Urine (Dipstick) 20 mg/dL (Neg-Trace); Squamous Epithelial None Seen HPF (0-3); WBC/HPF 0-3 HPF (0-3)
[2022-10-30 09:44] LABS: ALT (SGPT) 21 U/L (8-55); AST (SGOT) 25 U/L (5-34); Albumin 4.3 g/dL (3.5-5.0); Alkaline Phosphatase 111 U/L (40-110); Anion Gap 16 mmol/L (10-20); BUN (Urea Nitrogen) 6 mg/dL (8.9-20.6); Bilirubin, Total 0.8 mg/dL (0.2-1.2); Calc. Creatinine Clearance 0 mL/min (70-130); Calcium 9.5 mg/dL (7.8-10.44); Carbon Dioxide 25 mmol/L (22-29); Chloride 102 mmol/L (98-107); Estimated GFR 118; Globulin 3.2 g/dL (2.4-3.5); Glucose 112 mg/dL (70-105); Potassium 4.6 mmol/L (3.5-5.1); Protein, Total 7.5 g/dL (6.0-8.3); Sodium 138 mmol/L (136-145)
[2022-10-30 10:11] LABS: #Lymphocytes 0.5 thou/uL (1.20-3.40); #Monocytes 0.6 thou/uL (0.11-0.59); #Neutrophils 14.3 thou/uL (1.40-6.50); %Basophils 0.1 % (0.0-1.0); %Eosinophils 0.1 % (0.0-10.0); %Lymphocytes 3.4 % (21.0-51.0); %Monocytes 3.8 % (0.0-10.0); %Neutrophils 92.6 % (42.0-75.0); Hemoglobin 12.4 g/dL (14.0-18.0); Mean Corpuscular HGB CONC 33.2 g/dL (32.0-36.0); Mean Corpuscular Hemoglobin 30.7 pg (27.0-31.0); Mean Corpuscular Volume 92.4 fl (78.0-98.0); Mean Platelet Volume 6.9 fL (7.4-10.4); Platelet Count 265 10x3/uL (130-400); RBC Distribution Width 13.9 % (11.5-14.5); Red Blood Cell (RBC) Count 4.03 mill/uL (4.70-6.10); White Blood Cell (WBC) Count 15.4 10x3/uL (4.8-10.8)
[2022-10-30] MEDS ORDERED: Acetaminophen 650 MG Suppository PR PRN (10:49)
[2022-10-30] MEDS ORDERED: Lorazepam 2 MG/ML VIAL SLOW IVP PRN (10:49)
[2022-10-30] MEDS ORDERED: Bisacodyl 10 MG SUPP PR PRN (10:49)
[2022-10-30] MEDS ORDERED: Ondansetron PF 4 MG/2 ML Vial IVP PRN (10:49)
[2022-10-30 11:14] LABS: SARS-CoV-2 NAA Rapid Test Not Detected (NotDetected)
[2022-10-30] MEDS ORDERED: Lacosamide 400 MG in Sodium Chloride 0.9% 50 ML IVPB SCH (12:00)
[2022-10-30] MEDS: Sodium Chloride 0.9% 1,000 ML IV SCH ×2 (13:52→22:46)
[2022-10-30 14:44] LABS: Lactic Acid 1.2 mmol/L (0.5-2.2)
[2022-10-30] MEDS: Lacosamide 200 MG in Sodium Chloride 0.9% 50 ML IVPB SCH (20:22)
[2022-10-30] MEDS ORDERED: levETIRAcetam 500 MG/5 ML VIAL SLOW IVP SCH (21:00)
[2022-10-30] MEDS ORDERED: Lacosamide 50 MG in Sodium Chloride 0.9% 50 ML IVPB SCH (21:00)
[2022-10-30] MEDS ORDERED: Benztropine 1 MG TAB PO SCH (21:00)
[2022-10-30] MEDS: levETIRAcetam 500 MG/5 ML VIAL SLOW IVP SCH (21:19)
[2022-10-30] MEDS: Famotidine/PF 20 mg/2ml Vial SLOW IVP SCH (21:20)
[2022-10-30] MEDS: Gabapentin 300 MG CAP PO SCH (21:20)
[2022-10-30] MEDS: Amantadine HCl 100 mg Capsule PO SCH (21:20)
[2022-10-31 04:07] LABS: #Eosinphils 0.1 thou/uL (0.0-0.7); #Lymphocytes 0.9 thou/uL (1.20-3.40); #Monocytes 0.7 thou/uL (0.11-0.59); #Neutrophils 13.9 thou/uL (1.40-6.50); %Basophils 0.2 % (0.0-1.0); %Eosinophils 0.4 % (0.0-10.0); %Lymphocytes 5.7 % (21.0-51.0); %Monocytes 4.7 % (0.0-10.0); Hemoglobin 12.4 g/dL (14.0-18.0); Mean Corpuscular HGB CONC 32.5 g/dL (32.0-36.0); Mean Corpuscular Hemoglobin 30.6 pg (27.0-31.0); Mean Corpuscular Volume 94.4 fl (78.0-98.0); Mean Platelet Volume 7.6 fL (7.4-10.4); Platelet Count 291 10x3/uL (130-400); RBC Distribution Width 14.3 % (11.5-14.5); Red Blood Cell (RBC) Count 4.04 mill/uL (4.70-6.10); White Blood Cell (WBC) Count 15.6 10x3/uL (4.8-10.8)
[2022-10-31 04:28] LABS: ALT (SGPT) 12 U/L (8-55); AST (SGOT) 13 U/L (5-34); Albumin 3.3 g/dL (3.5-5.0); Alkaline Phosphatase 83 U/L (40-110); Anion Gap 17 mmol/L (10-20); BUN (Urea Nitrogen) 9 mg/dL (8.9-20.6); Bilirubin, Total 1.1 mg/dL (0.2-1.2); Calc. Creatinine Clearance 172 mL/min (70-130); Calcium 8.6 mg/dL (7.8-10.44); Carbon Dioxide 16 mmol/L (22-29); Chloride 106 mmol/L (98-107); Estimated GFR 120; Globulin 2.9 g/dL (2.4-3.5); Glucose 91 mg/dL (70-105); Magnesium 1.6 mg/dL (1.6-2.6); Potassium 4.1 mmol/L (3.5-5.1); Protein, Total 6.2 g/dL (6.0-8.3); Sodium 135 mmol/L (136-145)
[2022-10-31] MEDS: Sodium Chloride 0.9% 1,000 ML IV SCH (06:26)
[2022-10-31] MEDS ORDERED: FLUoxetine HCl 20 MG CAP PO SCH (09:00)
[2022-10-31] MEDS ORDERED: Aspirin Chewable 81 MG TAB PO SCH (09:00)
[2022-10-31] MEDS ORDERED: Atorvastatin Calcium 20 MG TAB PO SCH (09:00)
[2022-10-31] MEDS ORDERED: Folic Acid 1 MG TAB PO SCH (09:00)
[2022-10-31] MEDS: levETIRAcetam 500 MG/5 ML VIAL SLOW IVP SCH (09:12)
[2022-10-31] MEDS: Gabapentin 300 MG CAP PO SCH (09:13)
[2022-10-31] MEDS: Amantadine HCl 100 mg Capsule PO SCH (09:13)
[2022-10-31] MEDS: Famotidine/PF 20 mg/2ml Vial SLOW IVP SCH (09:15)
[2022-10-31] MEDS: Lacosamide 200 MG in Sodium Chloride 0.9% 50 ML IVPB SCH (10:17)
[2022-10-31 12:46] VITALS: BMI 25.2
[2022-10-31 13:14] VITALS: TEMP 98.7
[2022-11-01] MEDS ORDERED: Scopolamine 1.5 mg/72 hour Patch TD SCH (09:00)
== END 2022-10-31 15:32 | disposition hospice, inpatient (51) | DRG 100 ==
LOC: SUATTDRO 06:23 → ERS 06:23 → CCU 12:40
PROVIDERS: ADMIT Internal Medicine; ATTEND Family Medicine
DX: G40.901 Epilepsy, unspecified, not intractable, with status epilepticus (principal); J96.01 Acute respiratory failure with hypoxia; I69.951 Hemiplegia and hemiparesis following unspecified cerebrovascular disease affecting right dominant side; E44.0 Moderate protein-calorie malnutrition; Z66 Do not resuscitate; Z51.5 Encounter for palliative care; F32.A Depression, unspecified; K21.9 Gastro-esophageal reflux disease without esophagitis; G93.89 Other specified disorders of brain; F41.9 Anxiety disorder, unspecified; I10 Essential (primary) hypertension; E78.5 Hyperlipidemia, unspecified; Z20.822 Contact with and (suspected) exposure to COVID-19; D64.9 Anemia, unspecified; Z79.899 Other long term (current) drug therapy; I69.920 Aphasia following unspecified cerebrovascular disease; Z86.718 Personal history of other venous thrombosis and embolism; Z79.82 Long term (current) use of aspirin; Z68.25 Body mass index [BMI] 25.0-25.9, adult
CPT/HCPCS: 36415; 70450; 71045; 80053; 81003; 81015; 82805; 83605; 83735; 84146; 84443; 84484; 85025; 87040; 87086; 87149; 93005; 95712; 95819; 95957; C9254; J1650; J1953; J2060; J7050; S0028; U0002

== ENCOUNTER 2022-11-01 11:04 | Emergency (ER) | payer OTHER | END 2022-11-01 13:30 | LOC: ERS 11:04 | DX: K94.23 Gastrostomy malfunction (principal); I10 Essential (primary) hypertension | CPT/HCPCS: 99282 ==

== ENCOUNTER 2022-11-05 11:28 | Inpatient (IN) | payer OTHER ==
[~2022-11-05 11:28] MED LIST changes: -Iopamidol 370 76% 100 ML VIAL ONE; +Iopamidol-370 76% 500 ML MDV (1 ML CHARGE) ONE
[2022-11-05 14:17] LABS: Mean Corpuscular HGB CONC 31.2 g/dL (32.0-36.0); Mean Corpuscular Hemoglobin 28.5 pg (27.0-31.0); Mean Corpuscular Volume 91.3 fl (78.0-98.0); Mean Platelet Volume 7.1 fL (7.4-10.4); Platelet Count 330 10x3/uL (130-400); RBC Distribution Width 13.5 % (11.5-14.5); Red Blood Cell (RBC) Count 3.51 mill/uL (4.70-6.10); White Blood Cell (WBC) Count 14.9 10x3/uL (4.8-10.8)
[2022-11-05 14:32] LABS: Band 5 % (5-11); Lymphocytes 9 % (21-51); MDiff Complete? YES; Monocytes 7 % (0-10); Neutrophil 78 % (42-75); Platelet Morphology Comment Appears Adequate; Polychromasia SLIGHT = 2-3 cells (100X) (0-2/hpf)
[2022-11-05 14:35] LABS: ALT (SGPT) 16 U/L (8-55); AST (SGOT) 14 U/L (5-34); Albumin 3.3 g/dL (3.5-5.0); Alkaline Phosphatase 83 U/L (40-110); Anion Gap 16 mmol/L (10-20); BUN (Urea Nitrogen) 9 mg/dL (8.9-20.6); Bilirubin, Total 0.8 mg/dL (0.2-1.2); Calc. Creatinine Clearance 0 mL/min (70-130); Calcium 9.2 mg/dL (7.8-10.44); Carbon Dioxide 22 mmol/L (22-29); Chloride 99 mmol/L (98-107); Estimated GFR 122; Globulin 3.5 g/dL (2.4-3.5); Glucose 116 mg/dL (70-105); Potassium 4.4 mmol/L (3.5-5.1); Protein, Total 6.8 g/dL (6.0-8.3); Sodium 133 mmol/L (136-145)
[2022-11-05] MEDS ORDERED: Morphine 4 MG/ML VIAL SLOW IVP PRN (17:46)
[2022-11-05] MEDS ORDERED: Lorazepam 2 MG/ML VIAL SLOW IVP PRN ×2 (17:48→17:51)
[2022-11-05] MEDS ORDERED: Piperacillin/Tazobactam 3.375 GM VIAL ONE (17:56)
[2022-11-05] MEDS ORDERED: Piperacillin/Tazobactam 3.375 GM in Sodium Chloride 0.9% 100 ML IVPB SCH (22:00)
[2022-11-06] MEDS: Piperacillin/Tazobactam 3.375 GM in Sodium Chloride 0.9% 100 ML IVPB SCH ×3 (01:02→17:06)
[2022-11-06] MEDS: levETIRAcetam 500 MG/5 ML VIAL SLOW IVP SCH ×2 (01:04→09:57)
[2022-11-06 05:21] LABS: Phosphorus 4.4 mg/dL (2.3-4.7)
[2022-11-06 05:27] LABS: ALT (SGPT) 24 U/L (8-55); AST (SGOT) 19 U/L (5-34); Albumin 3.1 g/dL (3.5-5.0); Alkaline Phosphatase 80 U/L (40-110); Anion Gap 15 mmol/L (10-20); BUN (Urea Nitrogen) 9 mg/dL (8.9-20.6); Bilirubin, Total 0.8 mg/dL (0.2-1.2); CRP (Inflammatory) 25.83 mg/dL (= or < 0.5); Calc. Creatinine Clearance 170 mL/min (70-130); Calcium 8.9 mg/dL (7.8-10.44); Carbon Dioxide 22 mmol/L (22-29); Chloride 99 mmol/L (98-107); Estimated GFR 121; Globulin 3.6 g/dL (2.4-3.5); Glucose 92 mg/dL (70-105); Potassium 4.2 mmol/L (3.5-5.1); Protein, Total 6.7 g/dL (6.0-8.3); Sodium 132 mmol/L (136-145)
[2022-11-06 05:33] LABS: Band 6 % (5-11); Eosinophils 1 % (0-10); Hemoglobin 9.7 g/dL (14.0-18.0); Lymphocytes 10 % (21-51); MDiff Complete? YES; Mean Corpuscular HGB CONC 33.2 g/dL (32.0-36.0); Mean Corpuscular Hemoglobin 30.8 pg (27.0-31.0); Mean Corpuscular Volume 92.7 fl (78.0-98.0); Mean Platelet Volume 8.2 fL (7.4-10.4); Monocytes 7 % (0-10); Neutrophil 76 % (42-75); Platelet Count 302 10x3/uL (130-400); Platelet Morphology Comment Appears Adequate; RBC Distribution Width 13.5 % (11.5-14.5); RBC Morphology Normal; Red Blood Cell (RBC) Count 3.14 mill/uL (4.70-6.10); White Blood Cell (WBC) Count 9.1 10x3/uL (4.8-10.8)
[2022-11-06] MEDS: Pantoprazole 40 MG VIAL IVP SCH (09:56)
[2022-11-06] MEDS ORDERED: Lorazepam 0.5 MG TAB PO PRN (09:57)
[2022-11-06] MEDS ORDERED: Hyoscyamine SL 0.125 MG TAB SL PRN (11:00)
[2022-11-06] MEDS ORDERED: Lorazepam 0.5 MG TAB PER TUBE PRN (11:15)
[2022-11-06] MEDS: Scopolamine 1.5 mg/72 hour Patch TD SCH (11:52)
[2022-11-06] MEDS: Gabapentin 300 MG CAP PER TUBE SCH ×2 (17:05→22:04)
[2022-11-06] MEDS: Lacosamide 50 mg Tablet PER TUBE SCH (17:06)
[2022-11-06] MEDS: Benztropine 1 MG TAB PER TUBE SCH (22:04)
[2022-11-06] MEDS: Atorvastatin Calcium 20 MG TAB PER TUBE SCH (22:04)
[2022-11-06] MEDS: levETIRAcetam 100 mg/ml Oral Solution PER TUBE SCH (22:17)
[2022-11-07] MEDS: Piperacillin/Tazobactam 3.375 GM in Sodium Chloride 0.9% 100 ML IVPB SCH ×3 (01:35→16:05)
[2022-11-07] MEDS: levETIRAcetam 100 mg/ml Oral Solution PER TUBE SCH (03:56)
[2022-11-07] MEDS: Lacosamide 50 mg Tablet PER TUBE SCH ×2 (04:17→15:57)
[2022-11-07 05:06] LABS: Anion Gap 19 mmol/L (10-20); BUN (Urea Nitrogen) 7 mg/dL (8.9-20.6); Calc. Creatinine Clearance 165 mL/min (70-130); Calcium 9.4 mg/dL (7.8-10.44); Carbon Dioxide 18 mmol/L (22-29); Chloride 99 mmol/L (98-107); Estimated GFR 120; Glucose 78 mg/dL (70-105); Potassium 3.9 mmol/L (3.5-5.1); Sodium 132 mmol/L (136-145)
[2022-11-07 05:15] LABS: Band 18 % (5-11); Hemoglobin 9.9 g/dL (14.0-18.0); Hypochromia SLIGHT = 6-15 cells (100X) (0-5/hpf); Lymphocytes 19 % (21-51); MDiff Complete? YES; Mean Corpuscular HGB CONC 32.6 g/dL (32.0-36.0); Mean Corpuscular Hemoglobin 29.8 pg (27.0-31.0); Mean Corpuscular Volume 91.4 fl (78.0-98.0); Mean Platelet Volume 8.2 fL (7.4-10.4); Monocytes 6 % (0-10); Neutrophil 57 % (42-75); Platelet Count 303 10x3/uL (130-400); Platelet Morphology Comment Appears Adequate; RBC Distribution Width 13.6 % (11.5-14.5); Red Blood Cell (RBC) Count 3.32 mill/uL (4.70-6.10); White Blood Cell (WBC) Count 8.4 10x3/uL (4.8-10.8)
[2022-11-07] MEDS: Pantoprazole 40 MG VIAL IVP SCH (09:52)
[2022-11-07 10:39] VITALS: BMI 24.5
[2022-11-07] MEDS: levETIRAcetam 500 mg/5 ml Oral Solution PER TUBE SCH ×2 (10:54→21:44)
[2022-11-07] MEDS: traZODone HCl 50 MG TAB PER TUBE SCH (10:55)
[2022-11-07] MEDS: Aspirin Chewable 81 MG TAB PER TUBE SCH (10:55)
[2022-11-07] MEDS: Senokot 8.6 MG TAB PER TUBE SCH (10:55)
[2022-11-07] MEDS: FLUoxetine HCl 20 MG/5 ML UDCUP PER TUBE SCH (10:55)
[2022-11-07] MEDS: Gabapentin 300 MG CAP PER TUBE SCH ×3 (10:55→21:43)
[2022-11-07] MEDS: Benztropine 1 MG TAB PER TUBE SCH (21:43)
[2022-11-07] MEDS: Atorvastatin Calcium 20 MG TAB PER TUBE SCH (21:43)
[2022-11-08] MEDS: Piperacillin/Tazobactam 3.375 GM in Sodium Chloride 0.9% 100 ML IVPB SCH ×3 (01:39→17:34)
[2022-11-08] MEDS: Lacosamide 50 mg Tablet PER TUBE SCH ×2 (04:21→16:51)
[2022-11-08 04:55] LABS: Anion Gap 17 mmol/L (10-20); BUN (Urea Nitrogen) 8 mg/dL (8.9-20.6); Calc. Creatinine Clearance 143 mL/min (70-130); Calcium 9.2 mg/dL (7.8-10.44); Carbon Dioxide 22 mmol/L (22-29); Chloride 101 mmol/L (98-107); Estimated GFR 115; Glucose 80 mg/dL (70-105); Sodium 136 mmol/L (136-145)
[2022-11-08 04:56] LABS: Band 5 % (5-11); Hemoglobin 10.2 g/dL (14.0-18.0); Lymphocytes 12 % (21-51); MDiff Complete? YES; Mean Corpuscular HGB CONC 34.2 g/dL (32.0-36.0); Mean Corpuscular Hemoglobin 31.3 pg (27.0-31.0); Mean Corpuscular Volume 91.6 fl (78.0-98.0); Mean Platelet Volume 7.7 fL (7.4-10.4); Monocytes 4 % (0-10); Neutrophil 79 % (42-75); Platelet Count 342 10x3/uL (130-400); Platelet Morphology Comment Appears Adequate; RBC Distribution Width 13.7 % (11.5-14.5); RBC Morphology Normal; Red Blood Cell (RBC) Count 3.27 mill/uL (4.70-6.10)
[2022-11-08] MEDS: FLUoxetine HCl 20 MG/5 ML UDCUP PER TUBE SCH (09:17)
[2022-11-08] MEDS: Aspirin Chewable 81 MG TAB PER TUBE SCH (09:18)
[2022-11-08] MEDS: Senokot 8.6 MG TAB PER TUBE SCH (09:18)
[2022-11-08] MEDS: Gabapentin 300 MG CAP PER TUBE SCH ×3 (09:18→21:42)
[2022-11-08] MEDS: levETIRAcetam 500 mg/5 ml Oral Solution PER TUBE SCH ×2 (09:18→21:42)
[2022-11-08] MEDS: traZODone HCl 50 MG TAB PER TUBE SCH (09:18)
[2022-11-08] MEDS: Pantoprazole 40 MG VIAL IVP SCH (09:19)
[2022-11-08] MEDS ORDERED: GASTROGRAFIN 30 ML BOT ONE (09:47)
[2022-11-08] MEDS ORDERED: MD-Gastroview 120 ML BOT ONE (09:47)
[2022-11-08] MEDS ORDERED: Midazolam HCl 2 mg/2 ml Vial ONE (11:24)
[2022-11-08] MEDS ORDERED: fentaNYL 50 mcg/mL 1 mL Vial ONE (11:24)
[2022-11-08] MEDS: Atorvastatin Calcium 20 MG TAB PER TUBE SCH (21:42)
[2022-11-08] MEDS: Benztropine 1 MG TAB PER TUBE SCH (21:42)
[2022-11-09] MEDS: Piperacillin/Tazobactam 3.375 GM in Sodium Chloride 0.9% 100 ML IVPB SCH ×3 (01:08→16:03)
[2022-11-09] MEDS: Lacosamide 50 mg Tablet PER TUBE SCH ×2 (03:22→16:03)
[2022-11-09 05:39] LABS: #Eosinphils 0.3 thou/uL (0.0-0.7); #Lymphocytes 1.3 thou/uL (1.20-3.40); #Monocytes 0.4 thou/uL (0.11-0.59); #Neutrophils 5.2 thou/uL (1.40-6.50); %Basophils 0.6 % (0.0-1.0); %Eosinophils 3.5 % (0.0-10.0); %Lymphocytes 18.3 % (21.0-51.0); %Neutrophils 71.7 % (42.0-75.0); Hemoglobin 10.9 g/dL (14.0-18.0); Mean Corpuscular HGB CONC 32.7 g/dL (32.0-36.0); Mean Corpuscular Hemoglobin 30.2 pg (27.0-31.0); Mean Corpuscular Volume 92.5 fl (78.0-98.0); Mean Platelet Volume 6.8 fL (7.4-10.4); Platelet Count 391 10x3/uL (130-400); RBC Distribution Width 13.9 % (11.5-14.5); Red Blood Cell (RBC) Count 3.59 mill/uL (4.70-6.10); White Blood Cell (WBC) Count 7.3 10x3/uL (4.8-10.8)
[2022-11-09 06:09] LABS: Anion Gap 16 mmol/L (10-20); BUN (Urea Nitrogen) 12 mg/dL (8.9-20.6); Calc. Creatinine Clearance 138 mL/min (70-130); Calcium 9.1 mg/dL (7.8-10.44); Carbon Dioxide 24 mmol/L (22-29); Chloride 104 mmol/L (98-107); Estimated GFR 114; Glucose 83 mg/dL (70-105); Potassium 3.2 mmol/L (3.5-5.1); Sodium 141 mmol/L (136-145)
[2022-11-09] MEDS: Scopolamine 1.5 mg/72 hour Patch TD SCH (11:47)
[2022-11-09] MEDS: levETIRAcetam 500 mg/5 ml Oral Solution PER TUBE SCH ×2 (11:47→20:33)
[2022-11-09] MEDS: Gabapentin 300 MG CAP PER TUBE SCH ×3 (11:47→20:32)
[2022-11-09] MEDS: Aspirin Chewable 81 MG TAB PER TUBE SCH (11:47)
[2022-11-09] MEDS: Pantoprazole 40 MG VIAL IVP SCH (11:47)
[2022-11-09] MEDS: traZODone HCl 50 MG TAB PER TUBE SCH (11:48)
[2022-11-09] MEDS: Senokot 8.6 MG TAB PER TUBE SCH (11:49)
[2022-11-09] MEDS: FLUoxetine HCl 20 MG/5 ML UDCUP PER TUBE SCH (11:54)
[2022-11-09] MEDS ORDERED: GoLYTELY 4,000 ml Bottle PO SCH (18:00)
[2022-11-09 18:45] LABS: INR-International Normal Ratio 1.3; PTT 34.8 sec (22.9-36.1); Prothrombin Time 16.6 sec (12.0-14.7)
[2022-11-09] MEDS: Atorvastatin Calcium 20 MG TAB PER TUBE SCH (20:33)
[2022-11-09] MEDS: Benztropine 1 MG TAB PER TUBE SCH (20:33)
[2022-11-10] MEDS: Piperacillin/Tazobactam 3.375 GM in Sodium Chloride 0.9% 100 ML IVPB SCH ×3 (01:19→17:37)
[2022-11-10] MEDS: Lacosamide 50 mg Tablet PER TUBE SCH ×2 (03:08→18:10)
[2022-11-10 04:59] LABS: Hemoglobin 10.7 g/dL (14.0-18.0); Mean Corpuscular HGB CONC 34.3 g/dL (32.0-36.0); Mean Corpuscular Hemoglobin 31.4 pg (27.0-31.0); Mean Corpuscular Volume 91.5 fl (78.0-98.0); Mean Platelet Volume 7.4 fL (7.4-10.4); Platelet Count 339 10x3/uL (130-400); RBC Distribution Width 13.9 % (11.5-14.5); White Blood Cell (WBC) Count 5.7 10x3/uL (4.8-10.8)
[2022-11-10 05:16] LABS: Anion Gap 15 mmol/L (10-20); BUN (Urea Nitrogen) 12 mg/dL (8.9-20.6); Calc. Creatinine Clearance 143 mL/min (70-130); Carbon Dioxide 25 mmol/L (22-29); Chloride 104 mmol/L (98-107); Estimated GFR 115; Glucose 82 mg/dL (70-105); Magnesium 1.8 mg/dL (1.6-2.6); Phosphorus 2.5 mg/dL (2.3-4.7); Potassium 3.4 mmol/L (3.5-5.1); Sodium 141 mmol/L (136-145)
[2022-11-10 05:31] LABS: Band 1 % (5-11); Eosinophils 3 % (0-10); Large Platelets SLIGHT; Lymphocytes 20 % (21-51); MDiff Complete? YES; Monocytes 6 % (0-10); Neutrophil 69 % (42-75); Platelet Morphology Comment Appears Adequate; Polychromasia SLIGHT = 2-3 cells (100X) (0-2/hpf); Reactive Lymphocytes 1 % (0-10); Stomatocytes SLIGHT = 2-5 cells (100X) (0-1/hpf)
[2022-11-10] MEDS ORDERED: Piperacillin/Tazobactam 3.375 GM VIAL ONE (09:27)
[2022-11-10] MEDS ORDERED: Sodium Chloride 0.9% 100 ML ONE (09:28)
[2022-11-10] MEDS ORDERED: PROPOFOL 200 MG/20 ML VIAL ONE ×2 (09:37→11:49)
[2022-11-10] MEDS ORDERED: fentaNYL PF 100 MCG/2 ML SYRINGE ONE (10:46)
[2022-11-10] MEDS ORDERED: KETAMINE 100 MG/ML (5ML VIAL) ONE (11:17)
[2022-11-10] MEDS ORDERED: Phenylephrine 10 MG/ML VIAL ONE (11:49)
[2022-11-10] MEDS ORDERED: Dexamethasone 20 MG/5 ML VIAL ONE (11:49)
[2022-11-10] MEDS ORDERED: Lidocaine 1% PF 5 ML VIAL ONE (11:49)
[2022-11-10] MEDS ORDERED: Succinylcholine Chloride 100 MG/5 ML SYRINGE FS ONE (11:49)
[2022-11-10] MEDS ORDERED: NEOSTIGMINE 3 MG/3 ML SYR 3 MG/3 ML SYRINGE ONE (11:49)
[2022-11-10] MEDS ORDERED: GLYCOPYRROLATE/PF 0.2 MG/ML VIAL ONE (11:49)
[2022-11-10] MEDS ORDERED: Ondansetron PF 4 MG/2 ML Vial ONE (11:49)
[2022-11-10] MEDS ORDERED: Ondansetron HCl/PF 4 MG/2 ML Vial IVP PRN (14:11)
[2022-11-10] MEDS ORDERED: PACU-Morphine 4MG/ML VIAL SLOW IVP PRN (14:11)
[2022-11-10] MEDS ORDERED: Promethazine HCl 25 MG/ML VIAL IM PRN (14:11)
[2022-11-10] MEDS ORDERED: Morphine Sulfate 2 MG/ML SYRINGE SLOW IVP PRN (14:11)
[2022-11-10] MEDS ORDERED: HYDROmorphone 2 MG/ML VIAL SLOW IVP PRN (14:11)
[2022-11-10] MEDS ORDERED: fentaNYL 50 mcg/mL 1 mL Vial ONE ×2 (15:06→15:44)
[2022-11-10] MEDS: Aspirin Chewable 81 MG TAB PER TUBE SCH (17:00)
[2022-11-10] MEDS: Gabapentin 300 MG CAP PER TUBE SCH ×3 (17:01→21:37)
[2022-11-10] MEDS: FLUoxetine HCl 20 MG/5 ML UDCUP PER TUBE SCH (17:01)
[2022-11-10] MEDS: Saccharomyces boulardii 250 MG CAP PO SCH (17:04)
[2022-11-10] MEDS: Senokot 8.6 MG TAB PER TUBE SCH (17:04)
[2022-11-10] MEDS: Pantoprazole 40 MG VIAL IVP SCH (17:37)
[2022-11-10] MEDS: traZODone HCl 50 MG TAB PER TUBE SCH (18:10)
[2022-11-10] MEDS: levETIRAcetam 500 mg/5 ml Oral Solution PER TUBE SCH ×2 (18:11→21:36)
[2022-11-10] MEDS: Atorvastatin Calcium 20 MG TAB PER TUBE SCH (21:37)
[2022-11-10] MEDS: Benztropine 1 MG TAB PER TUBE SCH (21:39)
[2022-11-10] MEDS: 1/2 NS w/KCL 20 mEq 1,000 ML IV SCH (22:14)
[2022-11-10] MEDS ORDERED: Lactated Ringer's 1,000 ML IV SCH (22:15)
[2022-11-10] MEDS: Morphine 4 MG/ML VIAL SLOW IVP PRN (22:16)
[2022-11-11] MEDS: Piperacillin/Tazobactam 3.375 GM in Sodium Chloride 0.9% 100 ML IVPB SCH ×3 (01:41→17:19)
[2022-11-11] MEDS: Lacosamide 50 mg Tablet PER TUBE SCH ×2 (03:41→15:00)
[2022-11-11] MEDS: Morphine 4 MG/ML VIAL SLOW IVP PRN (05:53)
[2022-11-11] MEDS: 1/2 NS w/KCL 20 mEq 1,000 ML IV SCH ×3 (05:53→18:58)
[2022-11-11 07:46] LABS: Anion Gap 14 mmol/L (10-20); BUN (Urea Nitrogen) 10 mg/dL (8.9-20.6); Calc. Creatinine Clearance 143 mL/min (70-130); Calcium 8.5 mg/dL (7.8-10.44); Carbon Dioxide 24 mmol/L (22-29); Chloride 108 mmol/L (98-107); Estimated GFR 115; Glucose 132 mg/dL (70-105); Magnesium 1.5 mg/dL (1.6-2.6); Phosphorus 2.6 mg/dL (2.3-4.7); Potassium 3.6 mmol/L (3.5-5.1); Sodium 142 mmol/L (136-145)
[2022-11-11 08:15] LABS: Band 18 % (5-11); Hemoglobin 12.3 g/dL (14.0-18.0); Lymphocytes 2 % (21-51); MDiff Complete? YES; Mean Corpuscular HGB CONC 33.1 g/dL (32.0-36.0); Mean Corpuscular Hemoglobin 30.2 pg (27.0-31.0); Mean Platelet Volume 7.4 fL (7.4-10.4); Metamyelocyte 1 % (0-0); Monocytes 8 % (0-10); Neutrophil 69 % (42-75); Platelet Count 463 10x3/uL (130-400); Platelet Morphology Comment Appears Increased; Polychromasia SLIGHT = 2-3 cells (100X) (0-2/hpf); RBC Distribution Width 14.5 % (11.5-14.5); Reactive Lymphocytes 2 % (0-10); Red Blood Cell (RBC) Count 4.08 mill/uL (4.70-6.10); White Blood Cell (WBC) Count 13.1 10x3/uL (4.8-10.8)
[2022-11-11] MEDS ORDERED: Magnesium 2 GM/50 ML(in water) 3 GM in Premix Bag 1 BAG IVPB SCH (09:00)
[2022-11-11] MEDS ORDERED: Potassium Phosphate 30 MMOL, Magnesium Sulfate 3 GM in Sodium Chloride 0.9% 250 ML IVPB SCH (09:00)
[2022-11-11] MEDS: Gabapentin 300 MG CAP PER TUBE SCH ×3 (10:36→22:06)
[2022-11-11] MEDS: Aspirin Chewable 81 MG TAB PER TUBE SCH (10:36)
[2022-11-11] MEDS: Famotidine/PF 20 mg/2ml Vial SLOW IVP SCH ×2 (10:37→22:05)
[2022-11-11] MEDS: Senokot 8.6 MG TAB PER TUBE SCH (10:37)
[2022-11-11] MEDS: traZODone HCl 50 MG TAB PER TUBE SCH (10:37)
[2022-11-11] MEDS: FLUoxetine HCl 20 MG/5 ML UDCUP PER TUBE SCH (10:38)
[2022-11-11] MEDS: Saccharomyces boulardii 250 MG CAP PO SCH (10:38)
[2022-11-11] MEDS: Pantoprazole 40 MG VIAL IVP SCH (10:39)
[2022-11-11] MEDS: levETIRAcetam 500 mg/5 ml Oral Solution PER TUBE SCH ×2 (10:54→22:07)
[2022-11-11] MEDS ORDERED: Sodium Chloride 0.9% 1,000 ML IV SCH (19:45)
[2022-11-11] MEDS: Benztropine 1 MG TAB PER TUBE SCH (22:05)
[2022-11-11] MEDS: Atorvastatin Calcium 20 MG TAB PER TUBE SCH (22:06)
[2022-11-12] MEDS: 1/2 NS w/KCL 20 mEq 1,000 ML IV SCH ×4 (00:23→20:23)
[2022-11-12] MEDS: Piperacillin/Tazobactam 3.375 GM in Sodium Chloride 0.9% 100 ML IVPB SCH ×3 (00:24→16:55)
[2022-11-12] MEDS: Lacosamide 50 mg Tablet PER TUBE SCH ×2 (03:28→15:26)
[2022-11-12] MEDS ORDERED: Hydrocodone-Acetamin 15 ML UDCUP PO PRN (09:14)
[2022-11-12] MEDS: Aspirin Chewable 81 MG TAB PER TUBE SCH (10:18)
[2022-11-12] MEDS: Gabapentin 300 MG CAP PER TUBE SCH ×3 (10:18→20:24)
[2022-11-12] MEDS: FLUoxetine HCl 20 MG/5 ML UDCUP PER TUBE SCH (10:19)
[2022-11-12] MEDS: Pantoprazole 40 MG VIAL IVP SCH (10:20)
[2022-11-12] MEDS: Famotidine/PF 20 mg/2ml Vial SLOW IVP SCH ×2 (10:20→10:27)
[2022-11-12] MEDS: traZODone HCl 50 MG TAB PER TUBE SCH (10:21)
[2022-11-12] MEDS: Senokot 8.6 MG TAB PER TUBE SCH (10:21)
[2022-11-12] MEDS: Saccharomyces boulardii 250 MG CAP PO SCH (10:21)
[2022-11-12] MEDS: levETIRAcetam 500 mg/5 ml Oral Solution PER TUBE SCH ×2 (10:26→22:04)
[2022-11-12] MEDS: Hydrocodone-Acetamin 15 ML UDCUP PER TUBE SCH ×3 (12:48→23:45)
[2022-11-12] MEDS: Scopolamine 1.5 mg/72 hour Patch TD SCH (12:48)
[2022-11-12] MEDS: Benztropine 1 MG TAB PER TUBE SCH (20:23)
[2022-11-12] MEDS: Famotidine 20 MG TAB PER TUBE SCH (20:24)
[2022-11-12] MEDS: Atorvastatin Calcium 20 MG TAB PER TUBE SCH (20:25)
[2022-11-13] MEDS: Piperacillin/Tazobactam 3.375 GM in Sodium Chloride 0.9% 100 ML IVPB SCH ×3 (03:27→16:59)
[2022-11-13] MEDS: Lacosamide 50 mg Tablet PER TUBE SCH ×2 (03:32→17:00)
[2022-11-13] MEDS: 1/2 NS w/KCL 20 mEq 1,000 ML IV SCH ×3 (03:33→19:33)
[2022-11-13] MEDS: Hydrocodone-Acetamin 15 ML UDCUP PER TUBE SCH ×4 (05:52→23:09)
[2022-11-13 07:03] LABS: Hemoglobin 8.9 g/dL (14.0-18.0); Mean Corpuscular HGB CONC 33.1 g/dL (32.0-36.0); Mean Corpuscular Hemoglobin 30.6 pg (27.0-31.0); Mean Corpuscular Volume 92.4 fl (78.0-98.0); Mean Platelet Volume 6.7 fL (7.4-10.4); Platelet Count 336 10x3/uL (130-400); RBC Distribution Width 14.6 % (11.5-14.5); White Blood Cell (WBC) Count 11.5 10x3/uL (4.8-10.8)
[2022-11-13 07:18] LABS: Anion Gap 12 mmol/L (10-20); BUN (Urea Nitrogen) 8 mg/dL (8.9-20.6); Calc. Creatinine Clearance 175 mL/min (70-130); Calcium 7.9 mg/dL (7.8-10.44); Carbon Dioxide 22 mmol/L (22-29); Chloride 108 mmol/L (98-107); Estimated GFR 122; Glucose 108 mg/dL (70-105); Potassium 4.1 mmol/L (3.5-5.1); Sodium 138 mmol/L (136-145)
[2022-11-13 09:01] LABS: Band 9 % (5-11); Eosinophils 3 % (0-10); Lymphocytes 10 % (21-51); MDiff Complete? YES; Metamyelocyte 1 % (0-0); Monocytes 2 % (0-10); Neutrophil 75 % (42-75); Platelet Morphology Comment Appears Adequate; Polychromasia SLIGHT = 2-3 cells (100X) (0-2/hpf)
[2022-11-13] MEDS: Pantoprazole 40 MG VIAL IVP SCH (10:13)
[2022-11-13] MEDS: Gabapentin 300 MG CAP PER TUBE SCH ×3 (10:13→21:54)
[2022-11-13] MEDS: Famotidine 20 MG TAB PER TUBE SCH ×2 (10:14→21:54)
[2022-11-13] MEDS: Aspirin Chewable 81 MG TAB PER TUBE SCH (10:14)
[2022-11-13] MEDS: Senokot 8.6 MG TAB PER TUBE SCH (10:14)
[2022-11-13] MEDS: Saccharomyces boulardii 250 MG CAP PO SCH (10:14)
[2022-11-13] MEDS: FLUoxetine HCl 20 MG/5 ML UDCUP PER TUBE SCH (10:14)
[2022-11-13] MEDS: traZODone HCl 50 MG TAB PER TUBE SCH (10:14)
[2022-11-13] MEDS: levETIRAcetam 500 mg/5 ml Oral Solution PER TUBE SCH ×2 (10:21→23:07)
[2022-11-13] MEDS: Benztropine 1 MG TAB PER TUBE SCH (21:54)
[2022-11-13] MEDS: Atorvastatin Calcium 20 MG TAB PER TUBE SCH (21:54)
[2022-11-14] MEDS: Piperacillin/Tazobactam 3.375 GM in Sodium Chloride 0.9% 100 ML IVPB SCH ×3 (01:00→18:51)
[2022-11-14] MEDS: Lacosamide 50 mg Tablet PER TUBE SCH ×2 (03:18→15:31)
[2022-11-14] MEDS: 1/2 NS w/KCL 20 mEq 1,000 ML IV SCH (03:18)
[2022-11-14] MEDS: Hydrocodone-Acetamin 15 ML UDCUP PER TUBE SCH ×3 (05:23→18:51)
[2022-11-14 05:56] LABS: #Eosinphils 0.2 thou/uL (0.0-0.7); #Monocytes 0.4 thou/uL (0.11-0.59); #Neutrophils 11.1 thou/uL (1.40-6.50); %Eosinophils 1.8 % (0.0-10.0); %Lymphocytes 7.8 % (21.0-51.0); %Neutrophils 87.3 % (42.0-75.0); Hemoglobin 9.6 g/dL (14.0-18.0); Mean Corpuscular HGB CONC 33.5 g/dL (32.0-36.0); Mean Corpuscular Hemoglobin 30.6 pg (27.0-31.0); Mean Corpuscular Volume 91.4 fl (78.0-98.0); Mean Platelet Volume 6.6 fL (7.4-10.4); Platelet Count 320 10x3/uL (130-400); RBC Distribution Width 14.3 % (11.5-14.5); Red Blood Cell (RBC) Count 3.12 mill/uL (4.70-6.10); White Blood Cell (WBC) Count 12.7 10x3/uL (4.8-10.8)
[2022-11-14 06:18] LABS: Anion Gap 12 mmol/L (10-20); BUN (Urea Nitrogen) 5 mg/dL (8.9-20.6); Calc. Creatinine Clearance 191 mL/min (70-130); Calcium 7.9 mg/dL (7.8-10.44); Carbon Dioxide 22 mmol/L (22-29); Chloride 102 mmol/L (98-107); Estimated GFR 126; Glucose 100 mg/dL (70-105); Potassium 3.6 mmol/L (3.5-5.1); Sodium 132 mmol/L (136-145)
[2022-11-14] MEDS ORDERED: Sodium Chloride 0.9% 1,000 ML IV SCH (09:45)
[2022-11-14] MEDS ORDERED: Lorazepam 2 MG/ML VIAL IM SCH (09:45)
[2022-11-14] MEDS: Aspirin Chewable 81 MG TAB PER TUBE SCH (10:09)
[2022-11-14] MEDS ORDERED: Lidocaine 1% w/Epinephrine 1:100K 20 ML VIAL FS SCH (10:50)
[2022-11-14] MEDS: traZODone HCl 50 MG TAB PER TUBE SCH (11:02)
[2022-11-14] MEDS: Famotidine 20 MG TAB PER TUBE SCH ×2 (11:02→21:05)
[2022-11-14] MEDS: Senokot 8.6 MG TAB PER TUBE SCH (11:02)
[2022-11-14] MEDS: FLUoxetine HCl 20 MG/5 ML UDCUP PER TUBE SCH (11:03)
[2022-11-14] MEDS: Gabapentin 300 MG CAP PER TUBE SCH ×3 (11:03→21:06)
[2022-11-14] MEDS: Saccharomyces boulardii 250 MG CAP PO SCH (11:03)
[2022-11-14] MEDS: Sodium Chloride 0.9% 1,000 ML IV SCH ×2 (11:03→18:05)
[2022-11-14] MEDS: levETIRAcetam 500 mg/5 ml Oral Solution PER TUBE SCH ×2 (11:08→23:09)
[2022-11-14 11:12] LABS: Anion Gap 13 mmol/L (10-20); BUN (Urea Nitrogen) 5 mg/dL (8.9-20.6); Calc. Creatinine Clearance 184 mL/min (70-130); Carbon Dioxide 24 mmol/L (22-29); Chloride 102 mmol/L (98-107); Estimated GFR 124; Glucose 85 mg/dL (70-105); Potassium 3.5 mmol/L (3.5-5.1); Sodium 135 mmol/L (136-145)
[2022-11-14] MEDS ORDERED: Morphine 4 MG/ML VIAL ONE (17:44)
[2022-11-14] MEDS: Benztropine 1 MG TAB PER TUBE SCH (21:05)
[2022-11-14] MEDS: Atorvastatin Calcium 20 MG TAB PER TUBE SCH (21:06)
[2022-11-14] MEDS: Apixaban 5 MG TAB PO SCH (21:06)
[2022-11-15] MEDS: Hydrocodone-Acetamin 15 ML UDCUP PER TUBE SCH ×4 (01:12→18:08)
[2022-11-15] MEDS: Piperacillin/Tazobactam 3.375 GM in Sodium Chloride 0.9% 100 ML IVPB SCH (01:13)
[2022-11-15] MEDS: Sodium Chloride 0.9% 1,000 ML IV SCH ×2 (02:48→19:47)
[2022-11-15] MEDS: Lacosamide 50 mg Tablet PER TUBE SCH ×2 (04:31→15:45)
[2022-11-15 07:11] LABS: Hemoglobin 8.8 g/dL (14.0-18.0); Mean Corpuscular HGB CONC 32.9 g/dL (32.0-36.0); Mean Corpuscular Hemoglobin 30.7 pg (27.0-31.0); Mean Corpuscular Volume 93.1 fl (78.0-98.0); Mean Platelet Volume 6.9 fL (7.4-10.4); Platelet Count 300 10x3/uL (130-400); RBC Distribution Width 14.1 % (11.5-14.5); Red Blood Cell (RBC) Count 2.88 mill/uL (4.70-6.10)
[2022-11-15 07:26] LABS: Anion Gap 11 mmol/L (10-20); BUN (Urea Nitrogen) Less than 4 mg/dL (8.9-20.6); Calc. Creatinine Clearance 181 mL/min (70-130); Calcium 7.7 mg/dL (7.8-10.44); Carbon Dioxide 24 mmol/L (22-29); Chloride 104 mmol/L (98-107); Estimated GFR 124; Glucose 87 mg/dL (70-105); Magnesium 1.5 mg/dL (1.6-2.6); Sodium 135 mmol/L (136-145)
[2022-11-15] MEDS ORDERED: Magnesium Sulfate In Water 4 GM in Premix Bag 1 BAG IVPB SCH (07:30)
[2022-11-15 09:18] LABS: Band 6 % (5-11); Eosinophils 2 % (0-10); Lymphocytes 7 % (21-51); MDiff Complete? YES; Monocytes 2 % (0-10); Neutrophil 82 % (42-75); Platelet Morphology Comment Appears Adequate; Polychromasia SLIGHT = 2-3 cells (100X) (0-2/hpf); Reactive Lymphocytes 1 % (0-10)
[2022-11-15] MEDS: levETIRAcetam 500 mg/5 ml Oral Solution PER TUBE SCH ×2 (09:50→22:31)
[2022-11-15] MEDS: Aspirin Chewable 81 MG TAB PER TUBE SCH (09:50)
[2022-11-15] MEDS: Saccharomyces boulardii 250 MG CAP PO SCH (09:50)
[2022-11-15] MEDS: FLUoxetine HCl 20 MG/5 ML UDCUP PER TUBE SCH (09:50)
[2022-11-15] MEDS: Apixaban 5 MG TAB PO SCH ×2 (09:51→22:29)
[2022-11-15] MEDS: Famotidine 20 MG TAB PER TUBE SCH ×2 (09:51→22:29)
[2022-11-15] MEDS: Senokot 8.6 MG TAB PER TUBE SCH (09:51)
[2022-11-15] MEDS: Gabapentin 300 MG CAP PER TUBE SCH ×3 (09:52→22:29)
[2022-11-15] MEDS: traZODone HCl 50 MG TAB PER TUBE SCH (09:52)
[2022-11-15] MEDS: Scopolamine 1.5 mg/72 hour Patch TD SCH (12:59)
[2022-11-15] MEDS ORDERED: Bisacodyl 10 MG SUPP PR PRN (14:18)
[2022-11-15] MEDS ORDERED: Polyethylene Glycol 3350 17 GM Packet PER TUBE SCH (14:30)
[2022-11-15] MEDS: Benztropine 1 MG TAB PER TUBE SCH (22:28)
[2022-11-15] MEDS: Atorvastatin Calcium 20 MG TAB PER TUBE SCH (22:30)
[2022-11-16] MEDS: Hydrocodone-Acetamin 15 ML UDCUP PER TUBE SCH ×3 (00:07→12:20)
[2022-11-16] MEDS: Lacosamide 50 mg Tablet PER TUBE SCH ×2 (03:35→15:08)
[2022-11-16] MEDS: Sodium Chloride 0.9% 1,000 ML IV SCH (03:49)
[2022-11-16 08:00] LABS: Hemoglobin 8.5 g/dL (14.0-18.0); Mean Corpuscular HGB CONC 32.8 g/dL (32.0-36.0); Mean Corpuscular Hemoglobin 30.5 pg (27.0-31.0); Mean Corpuscular Volume 93.1 fl (78.0-98.0); Mean Platelet Volume 7.4 fL (7.4-10.4); Platelet Count 304 10x3/uL (130-400); RBC Distribution Width 14.4 % (11.5-14.5); Red Blood Cell (RBC) Count 2.78 mill/uL (4.70-6.10); White Blood Cell (WBC) Count 9.9 10x3/uL (4.8-10.8)
[2022-11-16 08:19] LABS: Anion Gap 12 mmol/L (10-20); BUN (Urea Nitrogen) 4 mg/dL (8.9-20.6); Calc. Creatinine Clearance 201 mL/min (70-130); Calcium 7.8 mg/dL (7.8-10.44); Carbon Dioxide 22 mmol/L (22-29); Chloride 106 mmol/L (98-107); Estimated GFR 128; Glucose 91 mg/dL (70-105); Magnesium 1.9 mg/dL (1.6-2.6); Potassium 3.6 mmol/L (3.5-5.1); Sodium 136 mmol/L (136-145)
[2022-11-16 08:39] LABS: Band 7 % (5-11); Eosinophils 1 % (0-10); Lymphocytes 15 % (21-51); MDiff Complete? YES; Metamyelocyte 1 % (0-0); Monocytes 2 % (0-10); Neutrophil 74 % (42-75); Platelet Morphology Comment Appears Adequate; Polychromasia SLIGHT = 2-3 cells (100X) (0-2/hpf)
[2022-11-16] MEDS ORDERED: Milk Of Magnesia 30 ML UDCUP PER TUBE SCH (08:45)
[2022-11-16] MEDS ORDERED: Senokot S 8.6-50 MG TAB PO SCH (09:00)
[2022-11-16] MEDS ORDERED: Polyethylene Glycol 3350 17 GM Packet PER TUBE SCH (09:00)
[2022-11-16] MEDS ORDERED: Polyethylene Glycol 3350 17 GM Packet PO SCH (09:00)
[2022-11-16] MEDS: FLUoxetine HCl 20 MG/5 ML UDCUP PER TUBE SCH (09:30)
[2022-11-16] MEDS: Aspirin Chewable 81 MG TAB PER TUBE SCH (09:31)
[2022-11-16] MEDS: Gabapentin 300 MG CAP PER TUBE SCH ×2 (09:31→15:07)
[2022-11-16] MEDS: Saccharomyces boulardii 250 MG CAP PO SCH (09:32)
[2022-11-16] MEDS: Famotidine 20 MG TAB PER TUBE SCH (09:32)
[2022-11-16] MEDS: Apixaban 5 MG TAB PO SCH (09:32)
[2022-11-16] MEDS: traZODone HCl 50 MG TAB PER TUBE SCH (09:34)
[2022-11-16] MEDS: Bisacodyl 10 MG SUPP PR SCH ×2 (09:37→14:57)
[2022-11-16] MEDS: levETIRAcetam 500 mg/5 ml Oral Solution PER TUBE SCH (11:15)
[2022-11-16 15:35] VITALS: BP 119/70; TEMP 97.8
[2022-11-21] MEDS ORDERED: Apixaban 5 MG TAB PO SCH ×2 (09:00→21:00)
== END 2022-11-16 16:15 | DRG 329 ==
LOC: SUATTDRO 11:28 → ERS 11:28 → ERHOLD 17:58 → 2NO 11-06 00:04 → CCU 11-10 11:14 → SJJU 11-10 16:51
PROVIDERS: ADMIT Family Medicine; ATTEND Family Medicine
PROC: 0D1L0Z4 Bypass Transverse Colon to Cutaneous, Open Approach (ICD-10-PCS; principal; 2022-11-10)
PROC: 0DBL0ZZ Excision of Transverse Colon, Open Approach (ICD-10-PCS; 2022-11-10)
PROC: 0DJ08ZZ Inspection of Upper Intestinal Tract, Via Natural or Artificial Opening Endoscopic (ICD-10-PCS; 2022-11-10)
PROC: 0DJD8ZZ Inspection of Lower Intestinal Tract, Via Natural or Artificial Opening Endoscopic (ICD-10-PCS; 2022-11-10)
DX: K94.22 Gastrostomy infection (principal); K63.1 Perforation of intestine (nontraumatic); K65.1 Peritoneal abscess; E87.1 Hypo-osmolality and hyponatremia; I69.951 Hemiplegia and hemiparesis following unspecified cerebrovascular disease affecting right dominant side; L02.211 Cutaneous abscess of abdominal wall; R78.81 Bacteremia; I82.621 Acute embolism and thrombosis of deep veins of right upper extremity; Y83.8 Other surgical procedures as the cause of abnormal reaction of the patient, or of later complication, without mention of misadventure at the time of the procedure; Z79.82 Long term (current) use of aspirin; Z79.899 Other long term (current) drug therapy; Z79.01 Long term (current) use of anticoagulants; G40.909 Epilepsy, unspecified, not intractable, without status epilepticus; K21.9 Gastro-esophageal reflux disease without esophagitis; I10 Essential (primary) hypertension; F41.9 Anxiety disorder, unspecified; F32.A Depression, unspecified; I69.991 Dysphagia following unspecified cerebrovascular disease; R13.12 Dysphagia, oropharyngeal phase; K94.23 Gastrostomy malfunction
CPT/HCPCS: 36415; 70450; 74018; 74177; 74250; 76380; 80048; 80053; 83735; 84100; 84145; 84443; 85025; 85610; 85730; 86140; 86850; 86900; 86901; 87040; 87076; 87149; 87186; 88307; 96365; 97139; A4649; C1776; C9113; J1100; J1650; J1953; J2060; J2250; J2270; J2370; J2405; J2543; J2704; J3010; J3475; J3480; J3490; J7030; J7050; J7120; Q9963; Q9967; S0028